=== PATIENT | male | born 1970 | race Caucasian/White ===

== ENCOUNTER 2024-04-14 21:07 | Emergency (ER) | payer OTHER, SELFPAY ==
[2024-04-14 21:11] VITALS: BP 149/74; PULSE 88; RESP 18; TEMP 36.2; O2SAT 97; BMI 21.6
--- NOTE | 2024-04-14 21:23 | ED_ITS ---
HPI - General Adult General Chief complaint: Back Injury/Pain Stated complaint: back pain/work related Time Seen by Provider: 04/14/24 21:11 Source: patient Mode of arrival: ambulatory Limitations: no limitations History of Present Illness HPI narrative: 53-year-old male presenting today with low back pain radiating down his right leg. 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 He denies any fevers or chills. Denies any trauma to the back. He denies any difficulty with urination. He denies any trouble with stooling. He denies any nausea or vomiting. He denies tripping or weakness of the lower extremity. Patient does smoke. Related Data Allergies Allergy/AdvReac Type Severity Reaction Status Date / Time No Known Drug Allergies Allergy Verified 04/14/24 21:15 Review of Systems Status of ROS: Reports: 6 or more systems reviewed and unremarkable except as noted in History and below Exam Narrative: Exam Narrative: Well-nourished well-developed patient in no acute distress. Alert and oriented. Answers questions appropriately. Mood and affect are appropriate. Thoughts are goal oriented and rational. No tangential or magical thinking noted. Patient speaks in full sentences without needing to catch his breath. HEENT: Normocephalic atraumatic. Pupils are equally round reactive to light. Extraocular muscles are intact. Conjunctivae are moist without any icterus noted. Moist mucous membranes. Very poor dentition. Abdomen is soft and nontender. Extremities: Bilateral lower extremities are without edema. Skin: Well perfused without any obvious rashes. Back: Normal appearance. No tenderness to palpation of the thoracic or lumbar spine. Strength is 5/5 of the lower extremities. Reflexes are 2+ and symmetric at the knees. No foot drop is noted. Gait is normal. He does have a positive straight leg test on the right Const: Vital Signs, click to edit/add: Vital Signs - 24 hr 04/14/24 21:11 Temperature 97.2 F L Pulse Rate [Left P ulse Oximeter] 88 Respiratory Rate 18 Blood Pressure [Ri ght Upper Arm] 149/74 H Pulse Oximetry 97 Oxygen Delivery Me thod Room Air Course Vital Signs Vital signs: Initial Vital Signs Temperature 97.2 F L 04/14/24 21:11 Temperature Source Temporal Artery Scan 04/14/24 21:11 Pulse Rate 88 04/14/24 21:11 Pulse Rhythm Regular 04/14/24 21:11 Respiratory Rate 18 04/14/24 21:11 Blood Pressure 149/74 H 04/14/24 21:11 Blood Pressure Mean 99 04/14/24 21:11 Blood Pressure Position Sitting 04/14/24 21:11 Pulse Oximetry 97 04/14/24 21:11 Oxygen Delivery Method Room Air 04/14/24 21:11 Vital Signs Temperature 97.2 F L 04/14/24 21:11 Pulse Rate 88 04/14/24 21:11 Respiratory Rate 18 04/14/24 21:11 Blood Pressure 149/74 H 04/14/24 21:11 Pulse Oximetry 97 04/14/24 21:11 Oxygen Delivery Method Room Air 04/14/24 21:11 Temperature 97.2 F L 04/14/24 21:11 Pulse Rate 88 04/14/24 21:11 Respiratory Rate 18 04/14/24 21:11 Blood Pressure 149/74 H 04/14/24 21:11 Pulse Oximetry 97 04/14/24 21:11 Oxygen Delivery Method Room Air 04/14/24 21:11 Medical Decision Making MDM Narrative Medical decision making narrative: 53-year-old male with low back pain with lumbar radiculopathy. No red flag symptoms noted today. Will treat with oxycodone at night to help sleep and prednisone taper. Discharge Plan Discharge Clinical Impression: Lumbar radiculopathy Patient Disposition: Home, Self-Care Condition: Stable Additional Instructions: You likely have a slipped disc in your back causing nerve compression. Take pain medication at night as needed to help you sleep. Take all steroid as prescribed. If you are not getting better in the next 2 weeks, you do see your primary care provider. If you are getting worse, developed difficulty urinating or having a bowel movement then you need to return to the ER. Follow Up/Referrals: Loree Chamberlain PA-C [Primary Care Provider] - Stand Alone Forms: [employer] Info Instructions
== END 2024-04-14 21:50 | disposition home or self-care (01) ==
PROVIDERS: Emergency Provider Family Medicine; PCP Physician Assistant Medical
DX: M54.16 Radiculopathy, lumbar region (principal)
CPT/HCPCS: 99283

== ENCOUNTER 2024-04-20 03:33 | Emergency (ER) | payer OTHER, SELFPAY ==
--- OUTSIDE RECORDS SUMMARY | 2024-04-20 03:39 | XMS_ITS | Clinical Summary ---
Author Organization [facility] Address [place], [place] [address] Care Team Providers Care Shift Superintendent Caustic Cresylate Name Role Phone Loree Chamberlain Primary Care Provider Allergies No known active allergies Medications Medication Sig Dispensed Refills Start Date End Date Status PRILOSEC 20 MG CAP take 1 capsule (20 mg) by oral route once daily before a meal 0 04/03/2008 Active fluticasone (50 mcg per actuation) nasal solution (FLONASE)Indicat ions:Subacute maxillary sinusitis inhale 1 spray into both nostrils by intranasal route 2 times daily. 3 Bottle 3 12/17/2016 Active naproxen (NAPROSYN) 500 mg tabletIndication s:Thumb pain, right Take 1 Tablet (500 mg) by mouth every 12 hours if needed for Pain. 28 Tablet 12/27/2022 Active gabapentin (NEURONTIN) 100 mg capsuleIndicatio ns:Acute midline low back pain with right-sided sciatica Take 100 mg in the morning, 100 mg at noon, and 300 mg at bedtime. 90 Capsule 04/18/2024 Active gabapentin (NEURONTIN) 100 mg capsuleIndicatio ns:Acute midline low back pain with right-sided sciatica Take 1 Capsule (100 mg) by mouth three times daily. 90 Capsule 04/16/2024 04/18/2024 Discontinue d(*Medicati on adjustment) Active Problems Problem Noted Date Diagnosed Date Tobacco abuse 05/01/2013 Allergic rhinitis 04/26/2013 Encounters Date Type Department Care Team Description 04/18/2024 Telephone [facility] [address] [place] [address] Rita Ramos PA Pain; Work Note 04/17/2024 Telephone [facility] [address] [place] [address] [address] Rita Ramos PA Results 04/16/2024 12:45 PM CDT Ancillary Procedure [facility] [address] [facility] [address] Arrived 04/16/2024 11:35 AM CDT Office Visit [facility] [address] [place] [address] [address] Rita Ramos PA Occ Med (04/13 evening at work. Lower back, and right sided- pain is radiating down the right leg to the ankle. ) 04/16/2024 Travel from Last 3 Months Immunizations Name Administration Dates Next Due AMB Influenza, IIV3 (Age >=3 years)(Flu Clinic Only) 04/03/2013,04/14/2012 COVID-19 vaccine ([employer]-J& J) PF, MDV 10/03/2020 Influenza, IIV3 (Age 6-35 mos) 04/19/2011,2009,04/18/2009 Influenza, IIV3 (Age >=3 years) 04/18/20 15,04/03/2013,04/14/2012,05/08/20 08 Influenza, IIV4 04/02/2014 Tdap 03/22/2012 Social History Tobacco Use Types Packs/Day Years Used Date Smoking Tobacco: Every Day Cigarettes 1 34.7 Started: 08/21/1989 Smokeless Tobacco: Never Tobacco Cessation:Counseling Given: Yes Alcohol Use Standard Drinks/Week Comments No 0 (1 standard drink = 0.6 oz pur e alcohol) PHQ-2 Answer Date Recorded PHQ-2 TOTAL SCORE 0 04/02/2022 Social Connections Answer Date Recorded Frequency of Communication with Friends and Fami ly 0 07/26/2023 Financial Resource Strain Answer Date R ecorded Difficulty of Paying Living Expenses 3 07/26/2023 Difficulty of Paying Living Expenses Not on file 07/26/2023 Food Insecurity Answer Date Recorded Worried About Running Out of Food in the Last Ye ar 1 07/26/2023 Transportation Needs Answer Date Record ed Lack of Transportation (Medical) 1 07/26/2023 Housing Stability Answer Date Recorded Unable to Pay for Housing in the Last Year 1 07/26/2023 Sex and Gender Information Value Date Recorded Sex Assigned at Not on file Gender Identity Not on file Sexual Orientation Not on file Obstetrics History Last Filed Vital Signs Vital Sign Reading Time Taken Comments Blood Pressure 144/75 04/16/2024 11:43 AM CDT Pulse 88 04/16/2024 11:43 AM CDT Temperature 36.6 ??C (97.9 ??F) 11/02/2023 1:41 PM CD T Respiratory Rate 18 07/26/2023 7:08 PM ACID DIPPER Oxygen Saturation 96% 04/16/2024 11: 43 AM CDT Inhaled Oxygen Concentration - - Weight 68.4 kg (150 lb 12.8 oz) 024 11:43 AM CDT Height 165.1 cm (5' 5) 04/02/2022 9:54 AM CDT Body Mass Index 25.09 04/02/2022 9:54 AM CDT Plan of Treatment Health Maintenance Due Date Last Done Comments Pneumococcal series for age 6-64 (1 of 2 - PCV) 1976 HIV for age 15-65 1985 Hepatitis C screening for ag e 18-79 1988 Colonoscopy through age 75 09/22/[address] (for lung CA) ag e 50-80 2020 Zoster (shingles) series for age 50+ (1 of 2) 2020 Lipids for age 45-75 08/04/2021 08/04/2016 Tetanus booster 03/22/2022 03/22/2012 BMI (ht and wt on same day) for age 18+ 04/02/2023 04/02/2022, 08/27/2020, 02/08/2018, Additional history exists Depression screening for age 12+ 04/02/2023 04/02/2022, 08/21/2019, 09/05/2017, Additional history exists COVID-19 vaccine series ( - season) 2024 10/03/2020 Influenza for age 50-64 03/18/2024 04/18/20 15, 04/02/2014, 04/03/2013, Additional history exists Tdap Completed 03/22/2012 Procedures Procedure Name Priority Date/Time Associated Diagnosis Comments XR SPINE LUMBAR 3 VIEWS Routine 04/16/2024 12:47 PM CDT Acute midline low back pain with right-sided sciatica LIPID PANEL W REFLEX MEASURED LDL Routine 08/04/2016 11:08 AM ACID DIPPER Screening cholesterol level from Last 3 Months or Most Recently Relevant to Health Maintenance Results * XR SPINE LUMBAR 3 VIEWS (04/16/2024 12:47 PM CDT) Anatomical Region Laterality Modality LUMBAR SPINE Computed Radiogr aphy 04/16/2024 3:49 PM CDT Impressions 04/16/2024 3:49 PM CDT Grade 1 degenerative spondylolisthesis of L4 on L5 due to facet degeneration. No vertebral body compression fracture. Mild disc space narrowing L4-5. Mild vascular calcifications. SI joints normal. Dictated by Diaz Gee MD @ 04/16/2024 3:49:08 PM (Electronically Signed) Narrative 04/16/2024 3:49 PM CDT For Patients: ??As a result of the Cures Act, medical imaging exams and procedure reports are released immediately into your electronic medical record. ??You may view this report before your referring provider. ??If you have questions, please contact your health care provider. Indication: Low back pain with right-sided sciatica Technique: Lumbar spine 2 view Comparison: MRI 09/08/2020 Procedure Note Diaz Gee MD - 04/16/2024 For Patients: As a result of the Cures Act, medical imagingexams and procedure reports are released immediately into your electronicmedical record. You may view this report before your referring provider.If you have questions, please contact your health care provider. Indication: Low back pain with right-sided sciatica Technique: Lumbar spine 2 view Comparison: MRI 09/08/2020 IMPRESSION: Grade 1 degenerative spondylolisthesis of L4 on L5 due to facetdegeneration. No vertebral body compression fracture. Mild disc spacenarrowing L4-5. Mild vascular calcifications. SI joints normal. Dictated by Diaz Gee MD @ 04/16/2024 3:49:08 PM (Electronically Signed) Rita [facility] * (ABNORMAL) LIPID PANEL W REFLEX MEASURED LDL (08/04/2016 11:08 AM ACID DIPPER) CHOLESTEROL,TOTAL 169 100 - 199 mg/dL 08/04/2016 11:35 AM ACID DIPPER [facility] TRIGLYCERIDES 91 <150 mg/dL 08/04/2016 11:35 AM ACID DIPPER [facility] HDL CHOLESTEROL 40(L) >40 mg/dL 7 11:35 AM ACID DIPPER [facility] NON-HDL CHOLESTEROL 129 <145 mg/dl 08/04/2016 11:35 AM ACID DIPPER [facility] CHOL/HDL RATIO 4.23 <4.50 08/04/2016 11:35 AM ACID DIPPER [facility] LDL CHOLESTEROL 111 <=130 mg/dL 08/04/2016 11:35 AM ACID DIPPER [facility] PATIENT STATUS FASTING 08/04/2016 11:35 AM ACID DIPPER [facility] Blood BLOOD SPECIMEN / Unknown Venipuncture / Unknown 08/04/2016 11:08 AM ACID DIPPER 08/04/2016 11:08 AM ACID DIPPER Loree SALCEDO CHEMISTRY [facility] [address] [place] [address], from Last 3 Months or Most Recently Relevant to Health Maintenance Care Teams Shift Superintendent Caustic Cresylate Relationship Specialty Start Date End Date Loree Chamberlain PA [address] [place] [address] PCP - General Family Practice 05/02/14
[2024-04-20 03:40] VITALS: BP 159/70; PULSE 118; RESP 16; TEMP 36.9; O2SAT 98; BMI 25.3
--- OUTSIDE RECORDS SUMMARY | 2024-04-20 04:17 | XMS_ITS | Clinical Summary ---
Author Organization [facility] Address [address] Care Team Providers Care Manager [employer] Name Role Phone Loree Chamberlain Primary Care [...] Type Department Care Team Description 04/18/2024 Telephone [facility] [address] [place] [address] Rita Ramos PA Pain; Work Note 04/17/2024 Telephone [facility] [address] [place] [address] [address] Rita Ramos PA Results 04/16/2024 12:45 PM CDT Ancillary Procedure [facility] [address] [facility] [address] Arrived 04/16/2024 11:35 AM CDT Office Visit [facility] [address] [place] [address] [address] Rita Ramos PA Occ Med (04/13 evening at work. Lower back, and right sided- pain is radiating down the right leg to the ankle. ) 04/16/2024 Travel from Last 3 Months Immunizations Name Administration Dates Next Due AMB Influenza, IIV3 (Age >=3 years)(Flu Clinic Only) 04/03/2013,04/14/2012 COVID-19 vaccine ([employer]-J& J) PF, MDV 10/03/2020 Influenza, IIV3 (Age [...] T Respiratory Rate 18 07/26/2023 7:08 PM SOCIAL DIRECTOR Oxygen Saturation 96% 04/16/2024 11: 43 AM [...] REFLEX MEASURED LDL Routine 08/04/2016 11:08 AM SOCIAL DIRECTOR Screening cholesterol level from Last 3 Months [...] W REFLEX MEASURED LDL (08/04/2016 11:08 AM SOCIAL DIRECTOR) CHOLESTEROL,TOTAL 169 100 - 199 mg/dL 08/04/2016 11:35 AM SOCIAL DIRECTOR [facility] TRIGLYCERIDES 91 <150 mg/dL 08/04/2016 11:35 AM SOCIAL DIRECTOR [facility] HDL CHOLESTEROL 40(L) >40 mg/dL 7 11:35 AM SOCIAL DIRECTOR [facility] NON-HDL CHOLESTEROL 129 <145 mg/dl 08/04/2016 11:35 AM SOCIAL DIRECTOR [facility] CHOL/HDL RATIO 4.23 <4.50 08/04/2016 11:35 AM SOCIAL DIRECTOR [facility] LDL CHOLESTEROL 111 <=130 mg/dL 08/04/2016 11:35 AM SOCIAL DIRECTOR [facility] PATIENT STATUS FASTING 08/04/2016 11:35 AM SOCIAL DIRECTOR [facility] Blood BLOOD SPECIMEN / Unknown Venipuncture / Unknown 08/04/2016 11:08 AM SOCIAL DIRECTOR 08/04/2016 11:08 AM SOCIAL DIRECTOR Loree SALCEDO CHEMISTRY [facility] [address] [place] [address], from Last 3 Months or Most Recently Relevant to Health Maintenance Care Teams Manager Water Waste[employer] Relationship Specialty Start Date End Date Loree Chamberlain PA [address] [place] [address] PCP - General Family Practice 05/02/14
--- NOTE | 2024-04-20 05:22 | ED.BACK ---
HPI - Back Pain/Injury General Date Seen: 04/20/24 Chief Complaint: Back Injury/Pain Stated Complaint: hip and back pain Time Seen by Provider: 04/20/24 03:52 Source: patient Mode of arrival: ambulatory Limitations: no limitations History of Present Illness HPI Narrative: Patient is a 53-year-old male who has been struggling with low back pain that radiates down his right leg. He was seen in the ER once and in the clinic once. This is a work comp case. His x-rays apparently showed some DJD those were done in the clinic. He has not had any advanced imaging. No bowel or bladder dysfunction. He has been treated with prednisone, oxycodone, Tylenol and tonight the pain was so severe the was unable to sleep. The clinic provider has not taken him out of work or sent him to physical therapy. No previous history of back issues. Related Data Previous Rx's ?Medication ?Instructions ?Recorded oxycodone-acetaminophen 5 mg-325 1 tab PO TID PRN pain #10 tabs 04/14/24 mg tablet (Percocet) prednisone 20 mg tablet 20 mg PO DIRECTED 9 days #18 04/14/24 tabs oxycodone 5 mg tablet 5 - 10 mg (1 - 2 x 5 mg) PO Q4-6H 04/20/24 PRN pain #20 tabs Allergies Allergy/AdvReac Type Severity Reaction Status Date / Time No Known Drug Allergies Allergy Verified 04/20/24 03:44 Review of Systems Narrative: Review of systems is outlined above otherwise noted to be negative. [facility] Social History Smoking Status: Current every day smoker Do you use any of these nicotine containing products: None How often do you have a drink containing alcohol: never AUDIT-C Alcohol total score: 0 Non-prescribed substance use: denies use Exam Narrative: Exam Narrative: Vitals noted. He has myofascial tightness and tenderness in the right low back. No palpable spasms. Straight leg raising is positive on the right, negative on the left. He is able to heel and toe walk. He seems to have a diminished left ankle jerk reflex. He all lines pain down his buttock, posterior thigh, lateral calf, dorsum of the foot, into the big toe. Range of motion is limited by pain. Const: Vital Signs, click to edit/add: Vital Signs - 24 hr 04/20/24 03:40 Temperature 98.5 F Pulse Rate [Right Pulse Oximeter] 118 H Respiratory Rate 16 Blood Pressure [Ri ght Upper Arm] 159/70 H Pulse Oximetry 98 Oxygen Delivery Me thod Room Air Course Course ED Course: Patient seen and examined. He is obviously very uncomfortable. His is within but she does not drive. He is given Toradol 60 mg IM with a planned increase his oxycodone dose. Vital Signs Vital signs: Initial Vital Signs Temperature 98.5 F 04/20/24 03:40 Temperature Source Temporal Artery Scan 04/20/24 03:40 Pulse Rate 118 H 04/20/24 03:40 Pulse Rhythm Regular 04/20/24 03:40 Pulse Strength 3+ Normal 04/20/24 03:40 Respiratory Rate 16 04/20/24 03:40 Blood Pressure 159/70 H 04/20/24 03:40 Blood Pressure Mean 99 04/20/24 03:40 Blood Pressure Position Sitting 04/20/24 03:40 Pulse Oximetry 98 04/20/24 03:40 Oxygen Delivery Method Room Air 04/20/24 03:40 Vital Signs Temperature 98.5 F 04/20/24 03:40 Pulse Rate 118 H 04/20/24 03:40 Respiratory Rate 16 04/20/24 03:40 Blood Pressure 159/70 H 04/20/24 03:40 Pulse Oximetry 98 04/20/24 03:40 Oxygen Delivery Method Room Air 04/20/24 03:40 Temperature 98.5 F 04/20/24 03:40 Pulse Rate 118 H 04/20/24 03:40 Respiratory Rate 16 04/20/24 03:40 Blood Pressure 159/70 H 04/20/24 03:40 Pulse Oximetry 98 04/20/24 03:40 Oxygen Delivery Method Room Air 04/20/24 03:40 Discharge Plan Discharge Clinical Impression: Lumbar radiculopathy Patient Disposition: Home, Self-Care Condition: Stable Additional Instructions: Tylenol 1000 mg three times daily, Ibuprofen 800 mg three times daily. Oxycodone 5-10 mg every 4 hours as needed. No work until seen in clinic. Your PCP needs to get you set up with Physical Therapy and an MRI of your LS spine. Follow up in the clinic within the next 3 days. Prescriptions: New oxycodone 5 mg tablet 5 - 10 mg PO Q4-6H PRN (Reason: pain) Qty: 20 0RF No Action oxycodone-acetaminophen [Percocet] 5-325 mg tablet 1 tab PO TID PRN (Reason: pain) Qty: 10 0RF prednisone 20 mg tablet 20 mg PO DIRECTED 9 Days Qty: 18 0RF Rx Instructions: 60 mg p.o. daily for 3 days (3 tablets daily on day 1-3), 40 mg daily for 3 days (2 tablets daily on days 4-6), 20 mg daily for 3 days (1 tablet daily on days 7-9). Follow Up/Referrals: Loree Chamberlain PAEulaC [Primary Care Provider] - Stand Alone Forms: [employer] Info Instructions
== END 2024-04-20 04:21 | disposition home or self-care (01) ==
PROVIDERS: Emergency Provider Family Medicine; PCP Physician Assistant Medical
DX: M54.16 Radiculopathy, lumbar region (principal)
CPT/HCPCS: 96372; 99281; 99283; 99284

== ENCOUNTER 2024-04-30 05:49 | Emergency (ER) | payer OTHER, SELFPAY ==
[2024-04-30 06:05] VITALS: BP 156/76; PULSE 91; RESP 16; TEMP 36.7; O2SAT 99; BMI 22.6
[2024-04-30 06:31] VITALS: TEMP 36.7
[2024-04-30] MEDS: KETOROLAC 30 MG/ML inj IM (06:31)
[2024-04-30] MEDS: predniSONE 20 MG TABLET 40 MG PO (06:31)
--- NOTE | 2024-04-30 06:33 | ED.GENADULT ---
HPI - General Adult General Chief complaint: Extremity Pain/Injury, Lower Stated complaint: RT leg pain from injury at work x2wks ago Time Seen by Provider: 04/30/24 06:12 Source: patient Mode of arrival: ambulatory Limitations: no limitations History of Present Illness HPI narrative: 53-year-old male with a history of multiple ED visits within the past 3 weeks presents to the emergency department for recurrent low back pain radiating down the right leg. Notes reviewed from ED, most recent was 10 days ago. Prior x-rays noted. Patient reports that for the last 3 days his pain has been worse. He finished his steroid 4 days ago. Initially he thought it was not helping but now that his pain has worsened, he does question this. He reports that he did see his primary care provider 5 days ago. He was given an increased dose of oxycodone. He does not have his pills with him for me to examine or count. He reports that he was also started on another medication, but he care murmur what it is, how often he takes it or the other details. Unfortunately my access to the [facility] records has and this is unable to be resolved overnight for me to find this out. He does not bring his print out of his medications, his pill bottles or have access through his phone for us to discover this safely. There has been no real change in his area of symptoms. No new trauma or injury. This is a workman's comp case. There was no loss of bowel or bladder dysfunction. He reports he has been unable to sleep due to the pain for the past [address] himself here. No fever, no new systemic symptoms. No rash. Past medical history and prior ED notes reviewed. He is not an accurate historian of his home medications. Denies drug allergies. He is a smoker. ROS is notable for the generalized and musculoskeletal symptoms as above. Negative for other new neurological, skin or other generalized concerns. Related Data Home Medications ?Medication ?Instructions ?Recorded ?Confirmed cyclobenzaprine 10 mg tablet 10 mg PO BID PRN muscle spasm 04/30/24 04/30/24 gabapentin 100 mg capsule 100 mg PO 3XD 04/30/24 04/30/24 Previous Rx's ?Medication ?Instructions ?Recorded gabapentin 300 mg capsule 300 - 600 mg (1 - 2 x 300 mg) PO 04/30/24 TID #120 caps prednisone 20 mg tablet 20 - 40 mg (1 - 2 x 20 mg) PO 04/30/24 DAILY #11 tabs Allergies Allergy/AdvReac Type Severity Reaction Status Date / Time No Known Drug Allergies Allergy Verified 04/30/24 06:05 [facility] Social History Smoking Status: Current every day smoker Do you use any of these nicotine containing products: None Second hand tobacco smoke exposure: Yes How often do you have a drink containing alcohol: never AUDIT-C Alcohol total score: 0 Non-prescribed substance use: denies use Exam Const: Vital Signs, click to edit/add: Vital Signs - 24 hr 04/30/24 06:05 04/30/24 06:31 Temperature 98.1 F 98.1 F Pulse Rate [Pulse Oximeter] 91 Respiratory Rate 16 Blood Pressure [Le ft Upper Arm] 156/76 H Pulse Oximetry 99 Oxygen Delivery Me thod Room Air Documenting provider has reviewed patient's vital signs: yes Common normals: no apparent distress Other: Friendly and cooperative. Suboptimal historian but does not seem intoxicated. HENMT: Common normals: normocephalic Head and scalp: normocephalic Mouth: oral and palatal mucosa normal Eye: Common normals: conjunctivae normal General eye: normal appearance of both eyes Conjunctiva: conjunctiva(e) normal Resp: Common normals: normal respiratory effort Effort & inspection: able to speak in complete sentences Back & Pelvis: Other: Loss of typical lumbar lordosis noted. No point bony tenderness to the spine. Tenderness to the right SI joint noted. Can only flex about 20? but it is mostly at the hip have her attend the waist. Extension is limited to about 10? and worsens his pain. Straight leg lift test is difficult because he has pain with any initiation of movement. Passive range of motion does isolate in the 30-70 degree arc that would be suspicious for herniated disc. This is on the right side, not the left. Muscle strength is +5/5 but he does have some slight weakness on the right as compared to the left and sensation deficit right side along L4 and L5, subtle and not complete. Extremity: Other: Legs normal to inspection with no swelling, redness or deformity to knees ankles or feet. Psych: Activity/motor behavior: appropriate eye contact Mood and affect: euthymic mood Skin: Common normals: no rashes or lesions noted General skin exam: no rashes or lesions noted Course Course ED Course: 53-year-old male with 3rd ED visit in the last 3 weeks presenting with worsening of back pain after completion of steroid burst. Has seen primary care provider and is now getting oxycodone through that provider. Per the prescription, should have 2 and half more days left. MRI has already been ordered which really is the most important next step in workup. I am not seeing any red flags for cauda equinus syndrome, new trauma or injury or an alternative diagnosis. There are no fevers to suspect infection or worsening neurological dysfunction. Counseled patient on options. He will receive Toradol and Tylenol here in the ED as he did previously findings helpful. Will give him a new prescription for gabapentin 300 mg morning, afternoon and 600 at bedtime. Counseled that he cannot receive further oxycodone from me and that needs to come from his primary care provider. He verbalized understanding of this. He will need to touch base with his primary care provider in a couple of days to recheck how things are going. Will restart prednisone 40 mg once daily for 4 days and then 20 mg once daily for 3 additional days. Counseled that the MRI is critical in figuring out the next steps in his management whether it be surgical, physical therapy or injection. I cannot coordinate that for him here through the emergency department. Written instructions provided, all questions answered. Alarm symptoms reviewed that would warrant repeat ED presentation. Vital Signs Vital signs: Initial Vital Signs Temperature 98.1 F 04/30/24 06:05 Temperature Source Temporal Artery Scan 04/30/24 06:05 Pulse Rate 91 04/30/24 06:05 Respiratory Rate 16 04/30/24 06:05 Blood Pressure 156/76 H 04/30/24 06:05 Blood Pressure Mean 102 04/30/24 06:05 Blood Pressure Position Sitting 04/30/24 06:05 Pulse Oximetry 99 04/30/24 06:05 Oxygen Delivery Method Room Air 04/30/24 06:05 Vital Signs Temperature 98.1 F 04/30/24 06:05 Pulse Rate 91 04/30/24 06:05 Respiratory Rate 16 04/30/24 06:05 Blood Pressure 156/76 H 04/30/24 06:05 Pulse Oximetry 99 04/30/24 06:05 Oxygen Delivery Method Room Air 04/30/24 06:05 Temperature 98.1 F 04/30/24 06:31 Pulse Rate 91 04/30/24 06:05 Respiratory Rate 16 04/30/24 06:05 Blood Pressure 156/76 H 04/30/24 06:05 Pulse Oximetry 99 04/30/24 06:05 Oxygen Delivery Method Room Air 04/30/24 06:05 Medications Administered Medications: Generic Name Dose Route Start Last Admin Trade Name Fracisco PRRina Reason Stop Dose Admin Ketorolac Tromethamine 30 mg 04/30/24 06:27 04/30/24 06:31 Ketorolac 30 Mg/Ml Inj IM 04/30/24 06:28 30 mg ONCE ONE Administration Prednisone 40 mg 04/30/24 06:27 04/30/24 06:31 Prednisone 20 Mg Tablet PO 04/30/24 06:28 40 mg ONCE ONE Administration Discharge Plan Discharge Clinical Impression: Radiculopathy of lumbar region Patient Disposition: Home, Self-Care Condition: Stable Instructions: Lumbar Radiculopathy (ED) Additional Instructions: Like the several other providers that you have seen, I agree that you seem to have a pinched nerve in your back. This is likely from herniated disc or other injury. There is not much that I can offer you in terms of diagnostics in the emergency room. I agree with the plan to proceed with an MRI at this point. I am glad your primary care provider has already started this process. It can be complicated to work with workman's Comp. Your given a shot of Toradol here in the emergency department, and anti-inflammatory pain medication. I think that your pain has worsened for the last 3 days because you have completed your course of prednisone. I would like to temporarily restart that. He will take 40 mg once daily for 4 more days, then 20 mg once daily for 3 days. Hopefully you have some information regarding your MRI by that point. Management of this really needs to go through your primary care provider from this point forward. I cannot give you any more pain medication through the emergency department. Continue taking the oxycodone that you have been previously prescribed. I really wish that I can see your records and have an accurate idea of how much gabapentin was given to you at [facility] if any. You need to always bring her pill bottles or an accurate list of your medications when you are switching between Health Systems. You mentioned that your on the lowest dose of gabapentin, I am going to recommend going to a standard dose which is 300 mg 1 tablet in the morning, 1 in the afternoon and 2 at bedtime. Hopefully this will also help you sleep. Schedule follow-up appointment in 2 days with her primary care provider for refills on your oxycodone should it be needed and to touch base with the next steps in the plan. Activity Level: Activity as Tolerated Discharge Diet: Regular Prescriptions: New gabapentin 300 mg capsule 300 - 600 mg PO TID Qty: 120 0RF Rx Instructions: 1 tablet by mouth in the morning, 1 in the afternoon and 2 tablets at bedtime. prednisone 20 mg tablet 20 - 40 mg PO DAILY Qty: 11 0RF Rx Instructions: 2 tablets by mouth each morning starting 10/15 for 4 days, then 1 tablet by mouth daily until gone No Action cyclobenzaprine 10 mg tablet 10 mg PO BID PRN (Reason: muscle spasm) gabapentin 100 mg capsule 100 mg PO 3XD Follow Up/Referrals: Loree Chamberlain PA-C [Primary Care Provider] - Stand Alone Forms: MyHealth Info Instructions
--- OUTSIDE RECORDS SUMMARY | 2024-04-30 06:46 | XMS_ITS | Clinical Summary ---
Author Organization [facility] Address [place], [place] [address] Care Team Providers Care Lead Blender Name Role Phone Loree Chamberlain Primary Care Provider Allergies No known active allergies Medications Medication Sig Dispensed Refills Start Date End Date Status PRILOSEC 20 MG CAP take 1 capsule (20 mg) by oral route once daily before a meal 0 04/03/2008 Active fluticasone (50 mcg per actuation) nasal solution (FLONASE)Indication s:Subacute maxillary sinusitis inhale 1 spray into both nostrils by intranasal route 2 times daily. 3 Bottle 3 12/17/2016 Active naproxen (NAPROSYN) 500 mg tabletIndications:T humb pain, right Take 1 Tablet (500 mg) by mouth every 12 hours if needed for Pain. 28 Tablet 12/27/2022 Active gabapentin (NEURONTIN) 100 mg capsuleIndications: Acute midline low back pain with right-sided sciatica Take 100 mg in the morning, 100 mg at noon, and 300 mg at bedtime. 90 Capsule 04/18/2024 Active cyclobenzaprine (FLEXERIL) 10 mg tabletIndications:A cute midline low back pain with right-sided sciatica,Right lumbar radiculopathy Take 1 Tablet (10 mg) by mouth 2 times daily if needed for Muscle Spasm. 30 Tablet 04/23/2024 Active gabapentin (NEURONTIN) 100 mg capsuleIndications: Acute midline low back pain with right-sided sciatica Take 1 Capsule (100 mg) by mouth three times daily. 90 Capsule 04/16/2024 Discontinue d(*Medicati on adjustment) Active Problems Problem Noted Date Diagnosed Date Tobacco abuse 05/01/2013 Allergic rhinitis 04/26/2013 Encounters Date Type Department Care Team Description 04/24/2024 Telephone [facility] [place] [address] Loree Chamberlain PA Results (XRAYS ) 04/23/2024 2:15 PM CDT Ancillary Procedure [address] [address] 04/23/2024 2:00 PM CDT Ancillary Procedure [address] [address] 04/23/2024 1:20 PM CDT Office Visit [facility] [place] [address] Loree Chamberlain PA Occ Med (Follow up. Nothing that was given to him last visit has really helped much. R ankle is bothering him, asking for an XR.) 04/23/2024 Travel 04/18/2024 Telephone [facility] [place] [address] Rita Ramos PA Pain; Work Note 04/17/[address] [address] Rita Ramos PA Results 04/16/2024 12:45 PM CDT Ancillary Procedure [address] [address] 04/16/2024 11:35 AM CDT Office Visit [address] [address] Rita Ramos PA Occ Med (04/13 evening at work. Lower back, and right sided- pain is radiating down the right leg to the ankle. ) 04/16/2024 Travel from Last 3 Months Immunizations Name Administration Dates Next Due AMB Influenza, IIV3 (Age >=3 years)(Flu Clinic Only) 04/03/2013,04/14/2012 COVID-19 vaccine (Zee-J& J) PF, MDV 10/03/2020 Influenza, IIV3 (Age [...] Sign Reading Time Taken Comments Blood Pressure 147/82 04/23/2024 1:25 PM CDT Pulse 76 04/23/2024 1:25 PM CDT Temperature 36.6 ??C (97.9 ??F) 11/02/2023 1:41 PM CD T Respiratory Rate 18 07/26/2023 7:08 PM HOSPICE SUPERINTENDENT Oxygen Saturation 96% 04/16/2024 11: 43 AM CDT Inhaled Oxygen Concentration - - Weight 67.5 kg (148 lb 12.8 oz) 04/23/2024 1:25 PM CDT Height 165.1 cm (5' 5) 04/02/2022 9:54 AM CDT Body Mass Index 24.76 04/02/2022 9:54 AM CDT Plan of Treatment Upcoming Encounters Date Type Department Care Team (Late st Contact Info) Description 05/17/2024 2:45 PM CDT Ancillary Procedure [facility] [address] [place] [address] Health Maintenance Due Date Last Done Comments [...] Additional history exists COVID-19 vaccine series ( season) 2024 10/03/2020 Influenza for age 50-64 03/18/2024 04/18/20 15, 04/02/2014, 04/03/2013, Additional history exists Tdap Completed 03/22/2012 Procedures Procedure Name Priority Date/Time Associated Diagnosis Comments XR FOOT 3 VIEWS RIGHT Routine 04/23/2024 2:07 PM CDT Foot pain, right Acute right ankle pain XR ANKLE 3 VIEWS RIGHT Routine 04/23/2024 2:06 PM CDT Foot pain, right Acute right ankle pain XR SPINE LUMBAR 3 VIEWS Routine 04/16/2024 12:47 PM CDT Acute midline low back pain with right-sided sciatica LIPID PANEL W REFLEX MEASURED LDL Routine 08/04/2016 11:08 AM [facility]OSPICE SUPERINTENDENT Screening cholesterol level from Last 3 Months or Most Recently Relevant to Health Maintenance Results * XR FOOT 3 VIEWS RIGHT (04/23/2024 2:07 PM CDT) Anatomical Region Laterality Modality FEET, FOOT R Computed Radiogr aphy 04/24/2024 1:18 PM CDT Narrative 04/24/2024 1:18 PM CDT For Patients: ??As a result of the Cures Act, medical imaging exams and procedure reports are released immediately into your electronic medical record. ??You may view this report before your referring provider. ??If you have questions, please contact your health care provider. INDICATION: Right foot pain. TECHNIQUE: Three views of the right foot. FINDINGS: No bone, joint, or soft tissue abnormality in the right foot. Normal exam. Dictated by Daryn Jean-Baptiste MD @ 04/24/2024 1:18:16 PM (Electronically Signed) Procedure Note Daryn Jean-Baptiste MD - 04/24/2024 For Patients: As a result of the Cures Act, medical imagingexams and procedure reports are released immediately into your electronicmedical record. You may view this report before your referring provider.If you have questions, please contact your health care provider. INDICATION: Right foot pain. TECHNIQUE: Three views of the right foot. FINDINGS: No bone, joint, or soft tissue abnormality in the right foot. Normalexam. Dictated by Daryn Jean-Baptiste MD @ 04/24/2024 1:18:16 PM (Electronically Signed) [facility] * XR ANKLE 3 VIEWS RIGHT (04/23/2024 2:06 PM CDT) Anatomical Region Laterality Modality ANKLES, ANKLE R Computed Radiogr aphy 04/24/2024 11:2 7 AM CDT Impressions 04/24/2024 11:27 AM CDT 1. No acute osseous injuries or abnormalities are noted. Dictated by: Nicolas Merrill MD @ 04/24/2024 11:27:07 (Electronically Signed) Narrative 04/24/2024 11:27 AM CDT For Patients: ??As a result of the Cures Act, medical imaging exams and procedure reports are released immediately into your electronic medical record. ??You may view this report before your referring provider. ??If you have questions, please contact your health care provider. INDICATION: Foot pain, right, right right ankle pain TECHNIQUE: Ankle radiograph 3 views right COMPARISON: None FINDINGS: Bone: No acute fractures or aggressive bone lesions are identified. Joint: The ankle mortise joint and the visualized hindfoot joints are unremarkable in appearance. No significant ankle effusion is seen. Soft tissue: The Kager fat pad and the Achilles` tendon are normal in appearance. No radiopaque foreign bodies are seen. Procedure Note Nicolas Merrill MD - 04/24/2024 For Patients: As a result of the Cures Act, medical imagingexams and procedure reports are released immediately into your electronicmedical record. You may view this report before your referring provider.If you have questions, please contact your health care provider. INDICATION: Foot pain, right, right right ankle pain TECHNIQUE: Ankle radiograph 3 views right COMPARISON: None FINDINGS: Bone: No acute fractures or aggressive bone lesions are identified. Joint: The ankle mortise joint and the visualized hindfoot joints areunremarkable in appearance. No significant ankle effusion is seen. Soft tissue: The Kager fat pad and the Achilles` tendon are normal inappearance. No radiopaque foreign bodies are seen. IMPRESSION: 1. No acute osseous injuries or abnormalities are noted. Dictated by: Nicolas Merrill MD @ 04/24/2024 11:27:07 (Electronically Signed) [facility] * XR SPINE LUMBAR 3 VIEWS (04/16/2024 [...] W REFLEX MEASURED LDL (08/04/2016 11:08 AM HOSPICE SUPERINTENDENT) CHOLESTEROL,TOTAL 169 100 - 199 mg/dL 08/04/2016 11:35 AM [facility] TRIGLYCERIDES 91 <150 mg/dL 08/04/2016 11:35 AM [facility]PERINTEND[facility] HDL CHOLESTEROL 40(L) >40 mg/dL 7 11:35 AM [facility] NON-HDL CHOLESTEROL 129 <145 mg/dl 08/04/2016 11:35 AM [facility] CHOL/HDL RATIO 4.23 <4.50 08/04/2016 11:35 AM [facility] LDL CHOLESTEROL 111 <=130 mg/dL 08/04/2016 11:35 AM [facility] PATIENT STATUS FASTING 08/04/2016 11:35 AM [facility] Blood BLOOD SPECIMEN / Unknown Venipuncture / Unknown 08/04/2016 11:08 AM [facility]OSPICE SUPERINTENDENT 08/04/2016 11:08 AM [facility] SUPERINTENDENT [facility] [address] [place] [address], from Last 3 Months or Most Recently Relevant to Health Maintenance Care Teams Lead Blender Relationship Specialty Start Date End Date Loree Chamberlain PA [address] [place] [address] PCP - General Family Practice 05/02/14
[2024-04-30 06:48] VITALS: TEMP 36.7
[2024-04-30] MEDS: ACETAMINOPHEN 500 MG TABLET 1000 MG PO (06:48)
[2024-04-30] MEDS: GABAPENTIN 300 MG CAPSULE 600 MG PO (06:49)
== END 2024-04-30 07:27 | disposition home or self-care (01) ==
LOC: ED 06:44
PROVIDERS: Emergency Provider Family Medicine; PCP Physician Assistant Medical
DX: M54.16 Radiculopathy, lumbar region (principal)
CPT/HCPCS: 96372; 99283; 99284; A9270; J1885; J7512

== ENCOUNTER 2024-05-02 10:59 | Outpatient (CLI) | payer OTHER, SELFPAY ==
--- OUTSIDE RECORDS SUMMARY | 2024-05-17 15:43 | XMS_ITS | Clinical Summary ---
Author Organization [employer] [facility] [employer] [facility] Address [place], [place] [address] Care Team Providers Care Message Clerk Name Role Phone Loree Chamberlain Primary Care [...] Encounters Date Type Department Care Team Description 05/11/2024 11:40 AM CDT Office Visit [facility] [address] [place] [address] Garrett Alvarez MD Procedure (Right L4-5 and L5-S1 TFESI) 05/02/2024 2:20 PM CDT Office Visit [facility] [address] [place] [address] Loree Chamberlain PA Occ Med (Follow Up. Not doing well. Feeling worse hard to get around. felt okay when he woke up but when bent down to get pants it hurt way worse. Went to ER this Morning by ambulance. Just left there.) 05/02/2024 Orders Only [facility] Scanner 1 scan: (1-Ord) [facility], CT LUMBAR SPINE WO CONTRAST, 05/02/2024 05/02/2024 Travel 04/24/2024 Telephone [facility] [address] [place] [address] Loree Chamberlain PA Results (XRAYS ) 04/23/2024 2:15 PM CDT Ancillary Procedure [facility] [address] [place] [address] 04/23/2024 2:00 PM CDT Ancillary Procedure [facility] [address] [place] [address] 04/23/2024 1:20 PM CDT Office Visit [facility] [address] [place] [address] Loree Chamberlain PA Occ Med (Follow up. Nothing that was given to him last visit has really helped much. R ankle is bothering him, asking for an XR.) 04/23/2024 Travel 04/18/2024 Telephone [facility] [address] [facility] [place] [address] Rita Rmaos PA Pain; Work Note 04/17/2024 Telephone [facility] [address] [place] [address] Rita Ramos PA Results 04/16/2024 12:45 PM CDT Ancillary Procedure [facility] [address] [place] [address] 04/16/2024 11:35 AM CDT Office Visit [facility] [address] [place] [address] Rita Ramos PA Occ Med (04/13 evening [...] 0 04/02/2022 Social Connections Answer Date Recorded Do you often feel lonely or isolated from those around you? 0 07/26/2023 Financial Resource Strain Answer Date R ecorded Difficulty of Paying Living Expenses 3 07/26/2023 Difficulty of Paying Living Expenses Not on file 07/26/2023 Food Insecurity Answer Date Recorded Do you worry your food will run out before you are able to buy more? 1 07/26/2023 Transportation Needs Answer Date Record ed Does lack of transportation keep you from medica l appointments? 1 07/26/2023 Does lack of transportation keep you from work, meetings or getting things that you need? 1 07/26/2023 Housing Stability Answer Date Recorded [...] T Respiratory Rate 18 07/26/2023 7:08 PM RECRUITER SPECIALIST Oxygen Saturation 100% 05/02/2024 2:27 PM CDT Inhaled Oxygen Concentration - - Weight 66 kg (145 lb 8 oz) 05/02/2024 2:27 PM CD T Height 165.1 cm (5' 5) 04/02/2022 9:54 AM CDT Body Mass Index 24.21 04/02/2022 9:54 AM CDT Plan of Treatment Upcoming Encounters Date Type Department Care Team (Late st Contact Info) Description 05/18/2024 10:10 AM CDT Office Visit [facility] [address] [place] [address] Loree Chamberlain PA [address] [place] [address] Health Maintenance Due Date Last Done Comments [...] Comments AMB EPIDURAL STEROID INJECTION CORRY 05/11/2024 12:00 AM CDT Acute midline low back pain [...] REFLEX MEASURED LDL Routine 08/04/2016 11:08 AM RECRUITER SPECIALIST Screening cholesterol level from Last 3 Months or Most Recently Relevant to Health Maintenance Results * AMB EPIDURAL STEROID INJECTION (05/11/2024 12:00 AM CDT) Loree SALCEDO NEUROLOGY ORD * SCAN-CT INTERPRETATION (05/02/2024 12:00 AM CDT) [...] W REFLEX MEASURED LDL (08/04/2016 11:08 AM RECRUITER SPECIALIST) [facility] Signature CHOLESTEROL,TOTAL 169 100 - 199 mg/dL 08/04/2016 11:[address] [facility] TRIGLYCERIDES 91 <150 mg/dL 08/04/2016 11:[address] [facility] HDL CHOLESTEROL 40(L) >40 mg/dL 7 11:[address] [facility] NON-HDL CHOLESTEROL 129 <145 mg/dl 08/04/2016 11:[address] [facility] CHOL/HDL RATIO 4.23 <4.50 08/04/2016 11:[address] [facility] LDL CHOLESTEROL 111 <=130 mg/dL 08/04/2016 11:[address] [facility] PATIENT STATUS FASTING 08/04/2016 11:35 AM RECRUITER SPECIALIST [facility] Blood BLOOD SPECIMEN / Unknown Venipuncture / Unknown 08/04/2016 11:08 AM RECRUITER SPECIALIST 08/04/2016 11:08 AM RECRUITER SPECIALIST Loree SALCEDO CHEMISTRY [facility] [address] [place] [address], from Last 3 Months or Most Recently Relevant to Health Maintenance Care Teams Message Clerk Relationship Specialty Start Date End Date Loree Chamberlain PA [address] [place] [address] PCP - General Family Practice 05/02/14
== END 2024-05-02 11:00 | disposition home or self-care (01) ==
LOC: AMB 05-17 15:41
PROVIDERS: PCP Physician Assistant Medical; Visit Provider Family Medicine
DX: M54.9 Dorsalgia, unspecified (principal)
CPT/HCPCS: A0425; A0427

== ENCOUNTER 2024-05-02 11:28 | Emergency (ER) | payer OTHER, SELFPAY ==
--- NOTE | 2024-05-02 11:33 | CRLHL7_ITS ---
For Patients: As a result of the Century Cures Act, medical imaging exams and procedure reports are released immediately into your electronic medical record. You may view this report before your referring provider. If you have questions, please contact your health care provider. INDICATION: Right leg and low back pain, hurt 2 weeks ago at work. TECHNIQUE: CT lumbar spine without contrast. COMPARISON: None FINDINGS: Vertebrae: Alignment is normal. There are no fractures or suspicious bony lesions. Congenital or remote fracture at the inferior facet of L2 which appears well corticated (5, 42; 7, 41). Discs and facet joints: Broad-based annular bulge with mild ligamentum flavum hypertrophy at L3-4 causing mild left foraminal stenosis. Facet hypertrophy and disc space narrowing at L4-5 with ligamentum flavum hypertrophy and broad-based annular bulge. There is also a slight eccentric right lateral protrusion combined with this disc bulge. This contributes to [id number] central spinal canal stenosis, mild left foraminal stenosis and severe right foraminal stenosis (series 3, image 99; series 8, image 45). Facet hypertrophy at L5-S1 without significant stenosis. Mild bilateral L5-S1 pseudoarthrosis. Extraspinal findings: Atherosclerosis. IMPRESSION: Moderate multilevel degenerative disc disease as detailed above. With a history of the patient`s right leg/low back pain, most significant stenosis is at the L4-5 level where a broad-based annular bulge and slight right lateral protrusion combined with facet and ligamentum flavum hypertrophy cause severe right foraminal stenosis. Please note that all CT scans at this facility use dose modulation, iterative reconstruction, and/or weight-based dosing when appropriate to reduce radiation dose to as low as reasonably achievable. Dictated by Tal Trimble MD @ 05/02/2024 12:45:43 PM (Electronically Signed)
[2024-05-02 11:36] VITALS: BP 183/109; PULSE 107; RESP 20; TEMP 37.1; O2SAT 99; BMI 22.6
--- NOTE | 2024-05-02 11:38 | ED_ITS ---
HPI - General Adult General Chief complaint: Back Injury/Pain Stated complaint: Back pain Time Seen by Provider: 05/02/24 11:29 History of Present Illness HPI narrative: 50-year-old white male who works at [employer], here is back at work in a work comp injury it sounds like a couple weeks ago, has been to the ER couple of times for pain medication and management. He has had right leg symptoms as well. He was scheduled to get an MRI but apparently this has not happened. He scheduled to see Loree Douglas for primary care today. He bent over today and his back went bad he had trouble getting out of the house, he had pain down his right leg. He has done a steroid course. He has been on narcotic medicines well as gabapentin and he has tried Toradol that seemed to help him the most per his . He has been on muscle relaxant as well. He has had no history of significant back problems. By his report, he reports he has had no advanced imaging of his back. I do not see any detailed record of imaging in his back. Related Data Home Medications ?Medication ?Instructions ?Recorded ?Confirmed cyclobenzaprine 10 mg tablet 10 mg PO BID PRN muscle spasm 04/30/24 04/30/24 gabapentin 100 mg capsule 100 mg PO 3XD 04/30/24 04/30/24 Previous Rx's ?Medication ?Instructions ?Recorded gabapentin 300 mg capsule 300 - 600 mg (1 - 2 x 300 mg) PO 04/30/24 TID #120 caps prednisone 20 mg tablet 20 - 40 mg (1 - 2 x 20 mg) PO 04/30/24 DAILY #11 tabs ketorolac 10 mg tablet 10 mg PO Q8H PRN pain 5 days #20 05/02/24 tabs Allergies Allergy/AdvReac Type Severity Reaction Status Date / Time No Known Drug Allergies Allergy Verified 04/30/24 06:05 Review of Systems Status of ROS: Reports: 6 or more systems reviewed and unremarkable except as noted in History and below Narrative: No bowel or bladder dysfunction, fever, chills, perineal numbness. [facility] Social History Smoking Status: Current every day smoker Do you use any of these nicotine containing products: None Second hand tobacco smoke exposure: Yes How often do you have a drink containing alcohol: never AUDIT-C Alcohol total score: 0 Non-prescribed substance use: denies use Exam Narrative: Exam Narrative: Objective patient is in mild distress, brought in by ambulance. They have given him 50 of fentanyl and half a mg Ativan. Alert orient x3 No palpable back tenderness the patient has significant pain down his right leg and pain in the right low back. By his complaint He has got normal strength in lower extremities, he is able lift his legs off the table, he has a positive straight leg raise on the right with pain down his leg at about 45?. Const: Vital Signs, click to edit/add: Vital Signs - 24 hr 05/02/24 11:36 Temperature 98.7 F Pulse Rate [Pulse Oximeter] 107 H Respiratory Rate 20 Blood Pressure [Ri ght Upper Arm] 183/109 H Pulse Oximetry 99 Oxygen Delivery Me thod Room Air Course Vital Signs Vital signs: Initial Vital Signs Temperature 98.7 F 05/02/24 11:36 Temperature Source Temporal Artery Scan 05/02/24 11:36 Pulse Rate 107 H 05/02/24 11:36 Respiratory Rate 20 05/02/24 11:36 Blood Pressure 183/109 H 05/02/24 11:36 Blood Pressure Mean 133 H 05/02/24 11:36 Pulse Oximetry 99 05/02/24 11:36 Oxygen Delivery Method Room Air 05/02/24 11:36 Vital Signs Temperature 98.7 F 05/02/24 11:36 Pulse Rate 107 H 05/02/24 11:36 Respiratory Rate 20 05/02/24 11:36 Blood Pressure 183/109 H 05/02/24 11:36 Pulse Oximetry 99 05/02/24 11:36 Oxygen Delivery Method Room Air 05/02/24 11:36 Temperature 98.7 F 05/02/24 11:36 Pulse Rate 107 H 05/02/24 11:36 Respiratory Rate 20 05/02/24 11:36 Blood Pressure 183/109 H 05/02/24 11:36 Pulse Oximetry 99 05/02/24 11:36 Oxygen Delivery Method Room Air 05/02/24 11:36 Medications Administered Medications: Discontinued Medications Generic Name Dose Route Start Last Admin Trade Name Freq PRN Reason Stop Dose Admin Ketorolac Tromethamine 30 mg 05/02/24 11:33 05/02/24 11:45 Ketorolac 30 Mg/Ml Inj IVP 05/02/24 11:34 30 mg ONCE ONE Administration Methylprednisolone Sodium Succinate 125 mg 05/02/24 11:35 05/02/24 11:44 Methylprednisolone Sod Succ 62.5 Mg/Ml (125) IVP 05/02/24 11:36 125 mg ONCE ONE Administration Morphine Sulfate 10 mg 05/02/24 11:33 05/02/24 11:44 Morphine 10 Mg/Ml Inj IM 05/02/24 11:34 10 mg ONCE ONE Administration Medical Decision Making MDM Narrative Medical decision making narrative: [age] white male with work comp injury with couple week history history of low back pain and right leg pain, consistent with right sided radiculopathy. I think at this point in the ER given the expeditious nature of his workup needed will get a CT scan of his back, will give him IV Toradol 30 mg also given 10 mg IM morphine. Disposition pending findings above. Will give 1 dose of Solu- Medrol IV as well. Addendum: 12:54 p.m. 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 Will set him up to see Dr. Silvestre ramírez for an epidural steroid injection transforaminal at the L4-5 level on the right. Pain medicine from clinic, home today. Light activity. Sounds like he has narcotics at home and gabapentin, will add Toradol to his regimen acid not take any other anti- inflammatory. His and he were comfortable plan. Discharge Plan Discharge Clinical Impression: Acute lumbar radiculopathy Patient Disposition: Home w/ Parent or Adult Condition: Improved Additional Instructions: Will attempt to set up an epidural steroid injection for you, use her medicines at home and will give you Toradol as well to use as needed 3 times a day. Would recommend you do not take any Advil or Aleve with the Toradol. Expect a call from [facility] within 24-48 hours to set up an epidural steroid injection. If you haven't received a call by then, please call [phone]. Activity Level: Light activity Discharge Diet: Regular Prescriptions: New ketorolac 10 mg tablet 10 mg PO Q8H PRN (Reason: pain) 5 Days Qty: 20 0RF No Action cyclobenzaprine 10 mg tablet 10 mg PO BID PRN (Reason: muscle spasm) gabapentin 100 mg capsule 100 mg PO 3XD gabapentin 300 mg capsule 300 - 600 mg PO TID Qty: 120 0RF Rx Instructions: 1 tablet by mouth in the morning, 1 in the afternoon and 2 tablets at bedtime. prednisone 20 mg tablet 20 - 40 mg PO DAILY Qty: 11 0RF Rx Instructions: 2 tablets by mouth each morning starting 10/15 for 4 days, then 1 tablet by mouth daily until gone Follow Up/Referrals: Loree Chamberlain PA-C [Primary Care Provider] - Stand Alone Forms: [employer] Info Instructions
[2024-05-02] MEDS: METHYLPREDNISOLONE SOD SUCC 62.5 MG/ML (125) 125 MG IVP (11:44)
[2024-05-02] MEDS: MORPHINE 10 MG/ML inj IM (11:44)
[2024-05-02] MEDS: KETOROLAC 30 MG/ML inj IVP (11:45)
--- OUTSIDE RECORDS SUMMARY | 2024-05-02 11:53 | XMS_ITS | Clinical Summary ---
Author Organization [employer] [facility] Address [place], [place] [address] Care Team Providers Care Sandblaster Paint Sprayer Name Role Phone Loree Chamberlain Primary Care [...] Type Department Care Team Description 04/24/2024 Telephone [facility] [facility] [place] [address] Loree Chamberlain PA Results (XRAYS ) 04/23/2024 2:15 PM CDT Ancillary Procedure [address] [address] 04/23/2024 2:00 PM CDT Ancillary Procedure [address] [address] 04/23/2024 1:20 PM CDT Office [place] [address] Loree Chamberlain PA Occ Med (Follow up. Nothing that was given to him last visit has really helped much. R ankle is bothering him, asking for an XR.) 04/23/2024 Travel 04/18/2024 [place] [address] Rita Ramos PA Pain; Work Note 04/17/[address] [address] Rita Ramos PA Results 04/16/2024 12:45 PM CDT Ancillary Procedure [address] [address] 04/16/2024 11:35 AM CDT Office Visit [address] [address] Rita Ramos PA Occ Med (04/13 evening [...] T Respiratory Rate 18 07/26/2023 7:08 PM LDR RN Oxygen Saturation 96% 04/16/2024 11: 43 AM CDT Inhaled Oxygen Concentration - - Weight 67.5 kg (148 lb 12.8 oz) 04/23/2024 1:25 PM CDT Height 165.1 cm (5' 5) 04/02/2022 9:54 AM CDT Body Mass Index 24.76 04/02/2022 9:54 AM CDT Plan of Treatment Upcoming Encounters Date Type Department Care Team (Late st Contact Info) Description 05/02/2024 2:20 PM CDT Office Visit [facility] [address] [place] [address] Loree Chamberlain PA [address] [place] [address] 05/17/2024 2:45 PM CDT Ancillary Procedure [facility] [address] [place] [address] Health Maintenance Due Date Last Done Comments [...] REFLEX MEASURED LDL Routine 08/04/2016 11:08 AM LDR RN Screening cholesterol level from Last 3 Months [...] W REFLEX MEASURED LDL (08/04/2016 11:08 AM LDR RN) CHOLESTEROL,TOTAL 169 100 - 199 mg/dL 08/04/2016 11:35 AM LDR RN [facility] TRIGLYCERIDES 91 <150 mg/dL 08/04/2016 11:35 AM LDR RN [facility] HDL CHOLESTEROL 40(L) >40 mg/dL 7 11:35 AM LDR RN [facility] NON-HDL CHOLESTEROL 129 <145 mg/dl 08/04/2016 11:35 AM LDR RN [facility] CHOL/HDL RATIO 4.23 <4.50 08/04/2016 11:35 AM LDR RN [facility] LDL CHOLESTEROL 111 <=130 mg/dL 08/04/2016 11:35 AM LDR RN [facility] PATIENT STATUS FASTING 08/04/2016 11:35 AM LDR RN [facility] Blood BLOOD SPECIMEN / Unknown Venipuncture / Unknown 08/04/2016 11:08 AM LDR RN 08/04/2016 11:08 AM LDR RN Loree SALCEDO CHEMISTRY [facility] [address] [place] [address], from Last 3 Months or Most Recently Relevant to Health Maintenance Care Teams Sandblaster Paint Sprayer Relationship Specialty Start Date End Date Loree Chamberlain PA [address] [place] [address] PCP - General Family Practice 05/02/14
== END 2024-05-02 13:24 | disposition home or self-care (01) ==
PROVIDERS: Emergency Provider Family Medicine; PCP Physician Assistant Medical
DX: M54.17 Radiculopathy, lumbosacral region (principal); Y99.0 Civilian activity done for income or pay
CPT/HCPCS: 72131; 96372; 96374; 96375; 99284; J1885; J2270; J2919

== ENCOUNTER 2024-05-11 11:08 | Outpatient (CLI) | payer OTHER, SELFPAY ==
--- OUTSIDE RECORDS SUMMARY | 2024-05-11 11:15 | XMS_ITS | Clinical Summary ---
Author Organization [employer] [facility] [employer] Address [place], [place] [address] Care Team Providers Care Set Decorator Name Role Phone Loree Chamberlain Primary Care [...] needed for Pain. 28 Tablet 12/27/2022 Active cyclobenzaprine (FLEXERIL) 10 mg tabletIndications:A cute midline low back pain with right-sided sciatica,Right lumbar radiculopathy Take 1 Tablet (10 mg) by mouth 2 times daily if needed for Muscle Spasm. 30 Tablet 04/23/2024 Active gabapentin (NEURONTIN) 300 mg capsuleIndications: Acute midline low back pain with right-sided sciatica,Right lumbar radiculopathy Take 1 Capsule (300 mg) by mouth three times daily. 60 Capsule 05/02/2024 Active gabapentin (NEURONTIN) 100 mg capsuleIndications: Acute midline low back pain with right-sided sciatica Take 1 Capsule (100 mg) by mouth three times daily. 90 Capsule 04/16/2024 10/02/202 4 Discontinue d(*Medicati on adjustment) gabapentin (NEURONTIN) 100 mg capsuleIndications: Acute midline low back pain with right-sided sciatica Take 100 mg in the morning, 100 mg at noon, and 300 mg at bedtime. 90 Capsule 04/18/2024 4 Discontinue d(*Medicati on adjustment) Active Problems Problem Noted Date Diagnosed Date Tobacco abuse 05/01/2013 Allergic rhinitis 04/26/2013 Encounters Date Type Department Care Team Description 05/02/2024 2:20 PM CDT Office Visit [facility] [address] [place] [address] Loree Chamberlain PA Occ Med (Follow Up. Not doing well. Feeling worse hard to get around. felt okay when he woke up but when bent down to get pants it hurt way worse. Went to ER this Morning by ambulance. Just left there.) 05/02/2024 Orders Only [facility] Scanner 1 scan: (1-Ord) [facility], CT LUMBAR SPINE WO CONTRAST, 05/02/2024 05/02/2024 Travel 04/24/2024 Telephone [facility] [address] [place] [address] Loree Chamberlain PA Results (XRAYS ) 04/23/2024 2:15 PM CDT Ancillary Procedure [address] [address] 04/23/2024 2:00 PM CDT Ancillary Procedure [address] [address] 04/23/2024 1:20 PM CDT Office Visit [facility] [address] [place] [address] Loree Chamberlain PA Occ Med (Follow up. Nothing that was given to him last visit has really helped much. R ankle is bothering him, asking for an XR.) 04/23/2024 Travel 04/18/2024 Telephone [facility] [address] [place] [address] Rita Ramos PA Pain; Work Note 04/17/2024 Telephone [facility] [address] [facility] [place] [id number] Rita Ramos PA Results 04/16/2024 12:45 PM CDT Ancillary Procedure [facility] [address] [facility] [address] 04/16/2024 11:35 AM CDT Office Visit [facility] [address] [facility] [place] [id number] Rita Ramos PA Occ Med (04/13 evening at work. Lower back, and right sided- pain is radiating down the right leg to the ankle. ) 04/16/2024 Travel from Last 3 Months Immunizations Name Administration Dates Next Due AMB Influenza, IIV3 (Age >=3 years)(Flu Clinic Only) 04/03/2013,04/14/2012 COVID-19 vaccine ([employer] B.[employer]J& J) PF, MDV 10/03/2020 Influenza, IIV3 (Age 6-35 mos) 04/19/2011,2009,04/18/2009 Influenza, IIV3 (Age >=3 years) 04/18/20 15,04/03/2013,04/14/2012,05/08/20 08 Influenza, IIV4 04/02/2014 Tdap 03/22/2012 Social History Tobacco Use Types Packs/Day Years Used Date Smoking Tobacco: Every Day Cigarettes 1 34.7 Started: 08/21/1989 Smokeless Tobacco: Never Tobacco Cessation:Ready to Q uit: No; Counseling Given: No Alcohol Use Standard Drinks/Week Comments No 0 [...] file 07/26/2023 Food Insecurity Answer Date Recorded Do you worry your food will run out before you are able to buy more? 1 07/26/2023 Transportation Needs Answer Date Record ed Lack of Transportation (Medical) 1 07/26/2023 Housing Stability Answer Date Recorded What is your housing situation today? 1 07/26/2023 Sex and Gender Information Value Date Recorded Sex Assigned at Not on file Gender Identity Not on file Sexual Orientation Not on file Obstetrics History Last Filed Vital Signs Vital Sign Reading Time Taken Comments Blood Pressure 170/94 05/02/2024 2:27 PM CDT Pulse 118 05/02/2024 2:27 PM CDT Temperature 36.6 ??C (97.9 ??F) 11/02/2023 1:41 PM CD T Respiratory Rate 18 07/26/2023 7:08 PM PATIENT ADVOCATE Oxygen Saturation 100% 05/02/2024 2:27 PM CDT Inhaled Oxygen Concentration - - Weight 66 kg (145 lb 8 oz) 05/02/2024 2:27 PM CD T Height 165.1 cm (5' 5) 04/02/2022 9:54 AM CDT Body Mass Index 24.21 04/02/2022 9:54 AM CDT Plan of Treatment Upcoming Encounters Date Type Department Care Team (Late st Contact Info) Description 05/11/2024 11:40 AM CDT Office Visit [facility] [address] [place] [address] Garrett Alvarez MD [address] [place] [address] Arrived 05/18/2024 10:10 AM CDT Office Visit [facility] [address] [place] [address] Loree Chamberlain PA [address] [place] [address] Health Maintenance Due Date Last Done Comments [...] Procedure Name Priority Date/Time Associated Diagnosis Comments AMB EPIDURAL STEROID INJECTION CORRY 05/11/2024 8:01 AM CDT Acute midline low back pain with right-sided sciatica Right lumbar radiculopathy SCAN-CT INTERPRETATION 12:00 AM CDT XR FOOT 3 VIEWS RIGHT Routine 04/23/2024 2:07 PM CDT Foot pain, right Acute right ankle pain XR ANKLE 3 VIEWS RIGHT Routine 2:06 PM CDT Foot pain, right Acute right ankle pain XR SPINE LUMBAR 3 VIEWS Routine 04/16/2024 12:47 PM CDT Acute midline low back pain with right-sided sciatica LIPID PANEL W REFLEX MEASURED LDL Routine 08/04/2016 11:08 AM PATIENT ADVOCATE Screening cholesterol level from Last 3 Months or Most Recently Relevant to Health Maintenance Results * SCAN-CT INTERPRETATION (05/02/2024 12:00 AM CDT) Anatomical Region Laterality Modality Other Scanner OTHER * XR FOOT 3 VIEWS RIGHT (04/23/2024 [...] For Patients: As a result of the s Act, medical imagingexams and procedure reports are [...] W REFLEX MEASURED LDL (08/04/2016 11:08 AM PATIENT ADVOCATE) CHOLESTEROL,TOTAL 169 100 - 199 mg/dL 08/04/2016 11:35 AM PATIENT ADVOCATE [facility] TRIGLYCERIDES 91 <150 mg/dL 08/04/2016 11:[address] [facility] HDL CHOLESTEROL 40(L) >40 mg/dL 7 11:[address] [facility] NON-HDL CHOLESTEROL 129 <145 mg/dl 08/04/2016 11:[address] [facility] CHOL/HDL RATIO 4.23 <4.50 08/04/2016 11:[address] [facility] LDL CHOLESTEROL 111 <=130 mg/dL 08/04/2016 11:[address] [facility] PATIENT STATUS FASTING 08/04/2016 11:[address] [facility] Blood BLOOD SPECIMEN / Unknown Venipuncture / Unknown 08/04/2016 11:08 AM PATIENT ADVOCATE 08/04/2016 11:08 AM PATIENT ADVOCATE Loree SALCEDO CHEMISTRY [facility] [address] [place] [id number], from Last 3 Months or Most Recently Relevant to Health Maintenance Care Teams Set Decorator Relationship Specialty Start Date End Date Loree Chamberlain PA [address] [place] [id number] PCP - General Family Practice 05/02/14
== END 2024-05-11 11:09 | disposition home or self-care (01) ==
LOC: INJ CL 11:09
PROVIDERS: PCP Physician Assistant Medical; Visit Provider Family Medicine
DX: M54.16 Radiculopathy, lumbar region (principal); M51.26 Other intervertebral disc displacement, lumbar region
CPT/HCPCS: 64483; 64494; J1100; Q9966

== ENCOUNTER 2024-09-18 15:22 | Emergency (ER) | payer OTHER, SELFPAY ==
--- OUTSIDE RECORDS SUMMARY | 2024-09-18 15:24 | XMS_ITS | Clinical Summary ---
Author Organization [facility] Address [address] [place] [id number] Care Team Providers Care Soldering Machine Setter Name Role Phone Loree Chamberlain Primary Care Provider Allergies No known active allergies Medications omeprazole (PRILOSEC) 20 mg Delayed-Release capsule Take 20 mg by mouth once daily before a meal. 0 04/03/20 08 Active fluticasone (50 mcg per actuation) nasal solution (FLONASE)Indicati ons:Subacute maxillary sinusitis inhale 1 spray into both nostrils by intranasal route 2 times daily. 3 Bottle 3 12/18/19 17 Active gabapentin (NEURONTIN) 300 mg capsuleIndication s:Right lumbar radiculopathy,Acu te midline low back pain with right-sided sciatica Take 1 Capsule (300 mg) by mouth three times daily. 60 Capsule 06/08/20 24 Active Additional Information Patient taking differently:300 mg OralTID PRN, Indications: neuropathic pain, Informant: Patient's Recall, Reported on 09/14/2024 diphenhydrAMINE (Allergy) 25 mg tablet Take 25 mg by mouth once daily if needed (Allergies). Active docusate (COLACE) 100 mg capsuleIndication s:Postoperative pain after spinal surgery Take 1 Capsule (100 mg) by mouth two times daily for 14 days. 28 Capsule 5 12:03 PM DEMAND PLANNING MANAGER 09/16/19 25 025 Active methocarbamoL 750 mg tabletIndications :Postoperative pain after spinal surgery Take 1 Tablet (750 mg) by mouth four times daily for 14 days. 56 Tablet 5 12:03 PM DEMAND PLANNING MANAGER 09/16/19 25 025 Active ondansetron (ZOFRAN ODT) 4 mg disintegrating tabletIndications :Post-op pain Place 1 Tablet (4 mg) on the tongue two times daily for 7 days. 14 Tablet 5 12:03 PM DEMAND PLANNING MANAGER 09/16/19 25 025 Active acetaminophen (TYLENOL EXTRA STRGTH) 500 mg tabletIndications :Postoperative pain after spinal surgery Take 2 Tablets (1,000 mg) by mouth every 8 hours for 14 days. Max acetaminophen dose: 4000mg in 24 hrs. 84 Tablet 5 12:03 PM DEMAND PLANNING MANAGER 09/16/19 25 025 Active oxyCODONE (ROXICODONE) 5 mg immediate release tabletIndications :Postoperative pain after spinal surgery Take 1 Tablet (5 mg) by mouth every 4 hours if needed for Pain. 35 Tablet 5 12:03 PM DEMAND PLANNING MANAGER 09/16/19 25 025 Active WalkerIndications :Postoperative pain after spinal surgery Walker with front wheels for home use for 3 months. 1 Each 09/16/19 25 Active naproxen (NAPROSYN) 500 mg tabletIndications :Acute midline low back pain with right-sided sciatica,Right lumbar radiculopathy,[place] of right lower extremity,Lumbar herniated disc Take 1 Tablet (500 mg) by mouth every 12 hours if needed for Pain. 60 Tablet 1 06/26/20 24 025 Discontin ued(*IP Discontin ued) acetaminophen (TYLENOL EXTRA STRGTH) 500 mg tabletIndications :Acute midline low back pain with right-sided sciatica,Right lumbar radiculopathy,[place] of right lower extremity,Lumbar herniated disc Take 1 Tablet (500 mg) by mouth every 6 hours. Max acetaminophen dose: 4000mg in 24 hrs. 100 Tablet 3 06/26/20 24 025 Discontin ued(*IP Discontin ued) cyclobenzaprine (FLEXERIL) 10 mg tabletIndications :Acute midline low back pain with right-sided sciatica,Right lumbar radiculopathy TAKE 1 TABLET BY MOUTH TWICE A DAY NEEDED FOR MUSCLE SPASMS 30 Tablet 08/08/19 25 025 Discontin ued(*IP Discontin ued) ibuprofen (ADVIL; MOTRIN) 200 mg tablet Take 4 Tablets (800 mg) by mouth every 6 hours. 08/27/19 25 025 Discontin ued(*IP Discontin ued) Active Problems Problem Noted Date Diagnosed Date Spinal stenosis of lumbar re gion with neurogenic claudication 09/14/2024 Allergic rhinitis 09/14/2024 Tobacco abuse 05/01/2013 Allergic rhinitis 04/26/2013 Encounters Date Type Department Care Team Description 09/18/2024 Nurse Triage [facility] [address] [place] [address] Loree Chamberlain PA Musculoskeletal Problem 09/17/2024 Patient Outreach [facility] [address] [place] [address] Jaquelin Graham, RN Primary RN Care Management; Hospital F/U (LACE 20) 09/14/2024 7:45 AM DEMAND PLANNING MANAGER Anesthesia Event [facility] [address] [place] [address] Murali Kiran MD Klein, Lindsay B, ELLIE 09/14/2024 7:15 AM DEMAND PLANNING MANAGER - 09/14/2024 12:45 PM DEMAND PLANNING MANAGER Surgery [facility] [address] [place] [address] Benigno Khan MD Decompression - Lateral recess and foraminal L4 to: L5, Posterior Spine Fusion with Instrumentation L4 to: L5 09/14/2024 5:08 AM DEMAND PLANNING MANAGER - 09/15/2024 1:20 PM DEMAND PLANNING MANAGER Hospital Encounter [facility] [address] [place] [address] Benigno Khan MD Postoperative pain after spinal surgery (Primary Dx); Post-op pain Discharge Disposition: Home Self Care 09/13/2024 Travel 08/27/2024 9:30 AM DEMAND PLANNING MANAGER Office Visit [facility] [address] [place] [address] Loree Chamberlain PA [facility] Med (Follow up - stable) 08/27/2024 9:10 AM DEMAND PLANNING MANAGER Office Visit [facility] [address] [place] [address] Loree Chamberlain PA Preoperative Exam (back); Occ Med 08/27/2024 Telephone [facility] [address] [place] [address] Loree Chamberlain PA Medication Management 08/27/2024 Travel 08/07/2024 Refill [facility] [address] [place] [address] Loree Chamberlain PA Refill Request (Cyclobenzaprine) 08/03/[address] [address] Loree Chamberlain PA Form 07/27/2024 10:50 AM DEMAND PLANNING MANAGER Office Visit [address] [address] Loree Chamberlain PA Occ Med (Follow up - went to dentist and got the all clear, is waiting to hear back from surgeon) 07/27/[address] [address] Loree Chamberlain PA Form (FORM ) 07/27/[address] [address] Loree Chamberlain PA Follow Up 07/27/2024 Travel 07/02/[address] [address] Loree Chamberlain PA Letter For Work (Return to work ) 06/26/2024 10:10 AM DEMAND PLANNING MANAGER Office Visit [address] [address] Loree Chamberlain PA Occ Med (Recheck- still having pain down R leg) 06/26/2024 Travel 06/21/2024 Refill [facility] [address] [place] [address] Loree Chamberlain PA Refill Request (Cyclobenzaprine) from Last 3 Months Immunizations Name Administration Dates Next Due AMB Influenza, IIV3 (Age >=3 years)(Flu Clinic Only) 04/03/2013,04/14/2012 COVID-19 vaccine (Zee-J& J) PF, MDV 10/03/2020 Influenza, IIV3 (Age 6-35 mos) 04/19/2011,2009,04/18/2009 Influenza, IIV3 (Age >=3 years) 04/18/20 15,04/03/2013,04/14/2012,05/08/20 Influenza, IIV4 04/02/2014 Tdap 08/27/2024,03/22/2012 Social History Tobacco Use Types Packs/Day Years Used Date Smoking Tobacco: Every Day Cigarettes 1 35.1 Started: 08/21/1989 Smokeless Tobacco: Never Tobacco Cessation:Ready to Q uit: No; Counseling Given: No Alcohol Use Standard Drinks/Week Comments No 0 (1 standard drink = 0.6 oz pur e alcohol) PHQ-2 Answer Date Recorded PHQ-2 TOTAL SCORE 0 04/02/2022 Social Connections Answer Date Recorded Do you often feel lonely or isolated from those around you? 0 09/15/2024 Financial Resource Strain Answer Date R ecorded Difficulty of Paying Living Expenses 3 08/27/2024 Difficulty of Paying Living Expenses Not on file 08/27/2024 Food Insecurity Answer Date Recorded Do you worry your food will run out before you are able to buy more? 1 09/15/2024 Transportation Needs Answer Date Record ed Does lack of transportation keep you from medica l appointments? 1 09/15/2024 Does lack of transportation keep you from work, meetings or getting things that you need? 1 09/15/2024 Housing Stability Answer Date Recorded What is your housing situation today? 1 09/15/2024 Interpersonal Safety Answer Date Record ed Are you being hit, kicked, p ushed or yelled at (see row info)? No 09/15/2024 Interpersonal Safety Abuse 12 - 18 Not on file 09/15/2024 Interpersonal Safety Ambulatory Vulnerability No t on file 09/15/2024 Utilities Answer Date Recorded Do you have trouble paying f or utilities (for example, heat, electricity, water, phone)? 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 Not on file Not on file Not on fi le Obstetrics History Last Filed Vital Signs Vital Sign Reading Time Taken Comments Blood Pressure 144/82 09/15/2024 12:15 PM DEMAND PLANNING MANAGER Pulse 89 09/15/2024 12:15 PM DEMAND PLANNING MANAGER Temperature 36.8 C (98.2 F) 09/15/2024 7:53 AM DEMAND PLANNING MANAGER Respiratory Rate 16 09/15/2024 12:15 PM DEMAND PLANNING MANAGER Oxygen Saturation 96% 09/15/2024 12:15 PM DEMAND PLANNING MANAGER Inhaled Oxygen Concentration - - Weight 69.4 kg (153 lb) 09/14/2024 6:29 AM DEMAND PLANNING MANAGER Height 167.6 cm (5' 6) 09/14/2024 6:29 AM DEMAND PLANNING MANAGER Body Mass Index 24.69 09/14/2024 6:29 AM DEMAND PLANNING MANAGER Plan of Treatment Upcoming Encounters Date Type Department Care Team (Late st Contact Info) Description 2024 7:50 AM DEMAND PLANNING MANAGER Office Visit [facility] [address] [place] [address] Rita Ramos PA [address] [place] [address] Health Maintenance Due Date Last Done Comments HIV for age 15-65 1985 Hepatitis C screening for ag e 18-79 1988 Pneumococcal series for age 50+ (1 of 2 - PCV) 1989 Colonoscopy through age 75 09/22/[address] (for lung CA) ag e 50-80 2020 Zoster (shingles) series for age 50+ (1 of 2) 2020 Lipids for age 45-75 08/04/2021 08/04/2016 BMI (ht and wt on same day) for age 18+ 04/02/2023 04/02/2022, 08/27/2020, 02/08/2018, Additional history exists Depression screening for age 12+ 04/02/2023 04/02/2022, 08/21/2019, 09/05/2017, Additional history exists COVID-19 vaccine series ( season) 2024 10/03/2020 Influenza for age 50-64 03/18/2024 04/18/20 15, 04/02/2014, 04/03/2013, Additional history exists Tetanus booster 08/27/2034 08/27/2024, 03/22/2012 Tdap Completed 08/27/2024, 03/22/2012 Medical Devices Implanted Type Area Camera Mechanic Device Identifier Shelf Expiration Date Model / Serial / Lot Dino Lmbr 40x5.5mm Tsrh 3d Cvd Titnm - [id number] Implanted:Qty: 2 on 09/14/2024 by Benigno Khan MD at [facility] Spine Implants N/A: Spine Medtronic Spine/Ortho [id number] / / Putty Easypack 5cc Magnetos - [id number] Implanted:Qty: 1 on 09/14/2024 by Benigno Khan MD at [facility] N/A: Spine NeuMoDx [employer]os [employer] 04/17/2029 [id number] / / [id number] Set Screw Lmbr Tsrh 3dx - [id number] Implanted:Qty: 4 on 09/14/2024 by Benigno Khan MD at [facility] N/A: Spine Medtronic Spine/Ortho [id number] / / Screw Lmbr Post 6.5x40mm Tsrh 3dx Og Thin Va - [id number] Implanted:Qty: 4 on 09/14/2024 by Benigno Khan MD at [facility] N/A: Spine Medtronic Spine/Ortho [id number] / / Cnnctr Lmbr Sm Tsrh 3dx Offsettitnm - [id number] Implanted:Qty: 4 on 09/14/2024 by Benigno Khan MD at [facility] N/A: Spine Medtronic Spine/Ortho [id number] / / Procedures Procedure Name Priority Date/Time Associated Diagnosis Comments XR SPINE LUMBAR 2 VIEWS Routine 09/15/2024 9:51 AM DEMAND PLANNING MANAGER XR SPINE LUMBAR 2 VIEWS PORTABLE Routine 09/14/2024 11:18 AM DEMAND PLANNING MANAGER XR SPINE LUMBAR 2 VIEWS PORTABLE Routine 09/14/2024 11:17 AM DEMAND PLANNING MANAGER XR SPINE 1 VIEW PORTABLE Routine 09/14/2024 10:36 AM DEMAND PLANNING MANAGER XR SPINE 1 VIEW PORTABLE Routine 09/14/2024 8:39 AM DEMAND PLANNING MANAGER XR SPINE 1 VIEW PORTABLE Routine 09/14/2024 8:25 AM DEMAND PLANNING MANAGER ENDOTRACHEAL TUBE Routine 09/14/2024 8:1 4 AM DEMAND PLANNING MANAGER LAMINECTOMY DECOMPRESSION SPINE LEVEL 01 Tier 4 09/14/2024 7:11 AM DEMAND PLANNING MANAGER Stenosis, 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 HNP w/ Radiculopathy, Lumbar M51.16 Spondylolisthesis, Lumbar M43.16 Case Notes EDEN 4POST,[id number], SONALI/VERITO, as FUSION POSTERIOR SPINE LEVEL 01 Tier 4 09/14/2024 7:11 AM DEMAND PLANNING MANAGER Stenosis, 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 HNP w/ Radiculopathy, Lumbar M51.16 Spondylolisthesis, Lumbar M43.16 Case Notes CHRISTIANO GAYLE, SONALI/VERITO, as SCAN-OPERATIVE/PROCE DURE REPORT 09/14/2024 12:00 AM DEMAND PLANNING MANAGER SCAN-CARDIAC STRIP 09/14/2024 12 :00 AM DEMAND PLANNING MANAGER EKG 12 LEAD Routine 08/31/2024 4:12 PM DEMAND PLANNING MANAGER Preop general physical exam HI READING EKG - NO CHARGE, COMP ONLY Routine 08/31/2024 4:11 PM DEMAND PLANNING MANAGER Preop general physical exam BASIC METABOLIC PANEL Routine 08/27/2024 10:19 AM DEMAND PLANNING MANAGER Preop general physical exam CBC WITH AUTO DIFFERENTIAL Routine 08/27/2024 10:19 AM DEMAND PLANNING MANAGER Preop general physical exam LIPID PANEL W REFLEX MEASURED LDL Routine 08/04/2016 11:08 AM DEMAND PLANNING MANAGER Screening cholesterol level from Last 3 Months or Most Recently Relevant to Health Maintenance Results * XR SPINE LUMBAR 2 VIEWS (09/15/2024 9:51 AM DEMAND PLANNING MANAGER) Anatomical Region Laterality Modality LUMBAR SPINE Digital Radiogra phy 09/15/2024 10:2 8 AM DEMAND PLANNING MANAGER Impressions 09/15/2024 10:28 AM DEMAND PLANNING MANAGER 1. Status post posterior dino and pedicle screw fusion at L4-L5. Hardware intact. Alignment at that level maintained. Dictated by Remington Simpson MD @ Sep 15 2024 10:28AM (Electronically Signed) [email or web address] Narrative 09/15/2024 10:28 AM DEMAND PLANNING MANAGER For Patients: As a result of the Cures Act, medical imaging exams and procedure reports are released immediately into your electronic medical record. You may view this report before your referring provider. If you have questions, please contact your health care provider. HISTORY: Postoperative evaluation. TECHNIQUE: Two views of the lumbar spine. COMPARISON: 09/14/2024. FINDINGS: Status post posterior dino and pedicle screw fusion at L4-L5. Placed hardware appears intact and appropriately seated. Alignment at that level maintained. No fracture. Procedure Note Remington Simpson MD - 09/15/2024 For Patients: As a result of the Cures Act, medical imagingexams and procedure reports are released immediately into your electronicmedical record. You may view this report before your referring provider.If you have questions, please contact your health care provider. HISTORY: Postoperative evaluation. TECHNIQUE: Two views of the lumbar spine. COMPARISON: 09/14/2024. FINDINGS: Status post posterior dino and pedicle screw fusion at L4-L5. Placedhardware appears intact and appropriately seated. Alignment at that levelmaintained. No fracture. IMPRESSION: 1. Status post posterior dino and pedicle screw fusion at L4-L5. Hardwareintact. Alignment at that level maintained. Dictated by Remington Simpson MD @ Sep 15 2024 10:28AM (Electronically Signed) [email or web address] Angel SALCEDO GENERAL IMAGING Final Resu lt * XR SPINE LUMBAR 2 VIEWS PORTABLE (09/14/2024 11:18 AM DEMAND PLANNING MANAGER) Only the most recent of2 resultswithin the time period is included. Anatomical Region Laterality Modality Spine, LUMBAR SPINE Digital Radi ography Narrative 09/17/2024 1:34 PM DEMAND PLANNING MANAGER Indication: Spinal localization/intraoperative evaluation. Technique: Multiple radiographs of the lumbar spine. Comparison: None. Findings/impression: On initial radiographs, spinal localization devices project posterior to the L1 and L3 posterior elements. On later radiographs, spinal localization devices project posterior to the L4-5 posterior elements. On final radiographs, there has been placement of L4-5 bilateral transpedicular fixation screws. Benigno Khan MD GENERAL IMAGING Final Result * XR SPINE 1 VIEW PORTABLE (09/14/2024 10:36 AM DEMAND PLANNING MANAGER) Only the most recent of3 resultswithin the time period is included. Anatomical Region Laterality Modality Spine, CERVICAL SPINE, THORACIC SPINE, LUMBAR SP INE Digital Radiography Narrative 09/17/2024 1:34 PM DEMAND PLANNING MANAGER Indication: Spinal localization/intraoperative evaluation. Technique: Multiple radiographs of the lumbar spine. Comparison: None. Findings/impression: On initial radiographs, spinal localization devices project posterior to the L1 and L3 posterior elements. On later radiographs, spinal localization devices project posterior to the L4-5 posterior elements. On final radiographs, there has been placement of L4-5 bilateral transpedicular fixation screws. Benigno Khan MD GENERAL IMAGING Final Result * ETT (09/14/2024 8:14 AM DEMAND PLANNING MANAGER) Narrative Roscoe Carpenter, ELLIE Student - 09/14/2024 8:14 AM DEMAND PLANNING MANAGER Roscoe Carpenter CRNA Student 09/14/2024 8:14 AM Procedure: ETT Patient location during procedure: OR ETT Properties Mask Ventilation: easy and oral airway Final Technique: direct laryngoscopy Type: straight Location: oral Cuffed: yes Tube Size: 7.5 mm Stylet: yes Laryngoscope Blade: Mac Blade Size: 3 Cormack-Lehane Grade View: 1 Insertion Attempts: 1 Placement Verification: auscultation, end tidal CO2 and symmetrical chest wall movement Assessment: pharynx clear, atraumatic and dentition unchanged Secured at: 22 Measured From: teeth Bite Block: soft Difficulty: 0 (not difficult) Murali Kiran MD ANESTHESIA PX NOTE ORDERA BLES Final Result * SCAN-CARDIAC STRIP (09/14/2024 12:00 AM DEMAND PLANNING MANAGER) Narrative 09/14/2024 12:00 AM DEMAND PLANNING MANAGER Ordered by an unspecified provider. Other Clinical Staff OTHER Final Resul t * SCAN-OPERATIVE/PROCEDURE REPORT (09/14/2024 12:00 AM DEMAND PLANNING MANAGER) Narrative 09/14/2024 12:00 AM DEMAND PLANNING MANAGER Ordered by an unspecified provider. Other Clinical Staff OTHER Final Resul t * EKG 12 LEAD (08/31/2024 4:12 PM DEMAND PLANNING MANAGER) us Loree SALCEDO EKG ORD Final R esult * HI READING EKG - NO CHARGE, COMP ONLY (08/31/2024 4:11 PM DEMAND PLANNING MANAGER) us oLree SALCEDO PB - PROVIDER READINGS Final Result * (ABNORMAL) CBC AND DIFFERENTIAL (08/27/2024 10:19 AM DEMAND PLANNING MANAGER) WHITE BLOOD CELL COUNT 9.2 3.8 - 10.8 Thousand/u L [facility] RED BLOOD CELL COUNT 4.50 4.20 - 5.80 Million/uL [facility] HEMOGLOBIN 14.9 13.2 - 17.1 g/dL [facility] HEMATOCRIT 44.5 38.5 - 50.0 % [facility] MCV 98.9 80.0 - 100.0 fL [facility] MCH 33.1(H) 27.0 - 33.0 pg [facility] MCHC 33.5 32.0 - 36.0 g/dL [facility] Comment: For adults, a slight decrease in the calculated MCHC value (in the range of 30 to 32 g/dL) is most likely not clinically significant; however, it should be interpreted with caution in correlation with other red cell parameters and the patient's clinical condition. RDW 12.2 11.0 - 15.0 % [facility] PLATELET COUNT 422(H) 140 - 400 Thousand/u L [facility] MPV 9.7 7.5 - 12.5 fL [facility] ABSOLUTE NEUTROPHILS 5,474 1,500 - 7,800 cells/uL [facility] ABSOLUTE LYMPHOCYTES 2,245 850 - 3,900 cells/uL [facility] ABSOLUTE MONOCYTES 938 200 - 950 cells/uL [facility] ABSOLUTE EOSINOPHILS 460 15 - 500 cells/uL [facility] ABSOLUTE BASOPHILS 83 0 - 200 cells/uL [facility] NEUTROPHILS 59.5 % [facility] LYMPHOCYTES 24.4 % [facility] MONOCYTES 10.2 % [facility] EOSINOPHILS 5.0 % [facility] BASOPHILS 0.9 % [facility] Blood BLOOD SPECIMEN / Unknown 08/27/2024 10:19 AM DEMAND PLANNING MANAGER 08/27/2024 10:19 AM DEMAND PLANNING MANAGER us Loree SALCEDO HEMATOLOGY Final R esult [facility] [address] [place] [address], [facility] [address] [place] [address] * BASIC METABOLIC PANEL (08/27/2024 10:19 AM DEMAND PLANNING MANAGER) GLUCOSE 84 65 - 99 mg/dL [facility] Comment: Fasting reference interval UREA NITROGEN (BUN) 22 7 - 25 mg/dL [facility] CREATININE 0.89 0.70 - 1.30 mg/dL [facility] EGFR 102 > OR = 60 mL/min/1. 73m2 [facility] BUN/CREATININE RATIO SEE NOTE: 6 - 22 (calc) [facility] Comment: Not Reported: BUN and Creatinine are within reference range. SODIUM 143 135 - 146 mmol/L [facility] POTASSIUM 4.1 3.5 - 5.3 mmol/L [facility] CHLORIDE 107 98 - 110 mmol/L [facility] CARBON DIOXIDE 27 20 - 32 mmol/L [facility] ELECTROLYTE BALANCE 9 7 - 17 mmol/L (calc) [facility] CALCIUM 9.5 8.6 - 10.3 mg/dL [facility] Blood BLOOD SPECIMEN / Unknown 08/27/2024 10:19 AM DEMAND PLANNING MANAGER 08/27/2024 10:19 AM DEMAND PLANNING MANAGER Loree SALCEDO CHEMISTRY Final R esult [employer] [facility] [address] [place] [address], [address] [address] * (ABNORMAL) LIPID PANEL W REFLEX MEASURED LDL (08/04/2016 11:08 AM DEMAND PLANNING MANAGER) CHOLESTEROL,TOTAL 169 100 - 199 mg/dL 08/04/2016 11:[address] [facility] TRIGLYCERIDES 91 <150 mg/dL 08/04/2016 11:[address] [facility] HDL CHOLESTEROL 40(L) >40 mg/dL 7 11:[address] [facility] NON-HDL CHOLESTEROL 129 <145 mg/dl 08/04/2016 11:[address] [facility] CHOL/HDL RATIO 4.23 <4.50 08/04/2016 11:[address] [facility] LDL CHOLESTEROL 111 <=130 mg/dL 08/04/2016 11:[address] [facility] PATIENT STATUS FASTING 08/04/2016 11:35 AM DEMAND PLANNING MANAGER [facility] Blood BLOOD SPECIMEN / Unknown Venipuncture / Unknown 08/04/2016 11:08 AM DEMAND PLANNING MANAGER 08/04/2016 11:08 AM DEMAND PLANNING MANAGER Loree SALCEDO CHEMISTRY Final R esult [facility] [address] [place] [address], from Last 3 Months or Most Recently Relevant to Health Maintenance Insurance [facility] Advance Directives * Full Code (Latest Code Status on File) Date Activated Date Inactivated Comments 09/14/2024 6:22 PM 09/15/2024 3:27 PM Question Answer Comments Code Status Discussion: Reviewed Preferences Care Teams Soldering Machine Setter Relationship Specialty Start Date End Date Loree Chamberlain [place] [place] [address] PCP - General Family Practice 05/02/14
[2024-09-18 15:39] VITALS: BP 136/70; PULSE 104; TEMP 36.6; O2SAT 99
--- NOTE | 2024-09-18 16:19 | ED.GENADULT ---
HPI - General Adult General Time Seen by Provider: 16:19 Date Seen: 09/18/24 Chief complaint: Extremity Pain/Injury, Lower Stated complaint: Post op R ankle sore Time Seen by Provider: 09/18/24 16:18 Source: patient Mode of arrival: ambulatory Limitations: no limitations History of Present Illness HPI narrative: 53-year-old male who comes in today with ankle pain. Patient had decompression laminectomy and posterior fusion on September 14, discharged from the hospital September 15. Patient says he was feeling good for couple of days and then today has right ankle pain. He describes this as on the top of the foot and also wrapping around the ankle. No known injury, denies swelling or redness, no calf pain. On further questioning, it sounds like he actually has had this pain since March when his back started bothering him but it was worse this morning when he got up and so he came to the emergency department. Related Data Home Medications ?Medication ?Instructions ?Recorded ?Confirmed cyclobenzaprine 10 mg tablet 10 mg PO BID PRN muscle spasm 04/30/24 04/30/24 gabapentin 100 mg capsule 100 mg PO 3XD 04/30/24 04/30/24 Previous Rx's ?Medication ?Instructions ?Recorded gabapentin 300 mg capsule 300 - 600 mg (1 - 2 x 300 mg) PO 04/30/24 TID #120 caps prednisone 20 mg tablet 20 - 40 mg (1 - 2 x 20 mg) PO 04/30/24 DAILY #11 tabs ketorolac 10 mg tablet 10 mg PO Q8H PRN pain 5 days #20 05/02/24 tabs diclofenac sodium 3 % topical gel 1 applic topical BID #100 grams 09/18/24 Allergies Allergy/AdvReac Type Severity Reaction Status Date / Time No Known Drug Allergies Allergy Verified 04/30/24 06:05 [facility] Social History Smoking Status: Current every day smoker Do you use any of these nicotine containing products: None Second hand tobacco smoke exposure: Yes How often do you have a drink containing alcohol: never AUDIT-C Alcohol total score: 0 Non-prescribed substance use: denies use Exam Narrative: Exam Narrative: General: well nourished , NAD Head: Atraumatic and normocephalic ENT: External ears and external nose are normal Eyes: Conjunctiva clear, pupils are equal reactive, external ocular motions are intact Neck: Full spontaneous range of motion of the neck Lungs: No respiratory distress Musculoskeletal: Mild tenderness on the dorsum of the right foot with little bit of tenderness at the Achilles tendon insertion as well. No joint effusion, no warmth or redness. No calf tenderness. Pain with resisted ankle dorsiflexion and with passive plantar flexion. Neurologic: No gross focal neurologic deficits Skin: No rashes Psych: Mood and affect are appropriate Const: Vital Signs, click to edit/add: Vital Signs - 24 hr 09/18/24 15:39 09/18/24 17:50 Temperature 97.8 F 97.8 F Pulse Rate [Pulse Oximeter] 104 H 103 H Respiratory Rate 18 Blood Pressure [Ri ght Upper Arm] 136/70 148/87 H Pulse Oximetry 99 99 Oxygen Delivery Me thod Room Air Room Air Course Course ED Course: Reviewed most recent admission from September 14 to September 15 when patient was admitted for decompression at L4 and L5 with L4-5 fusion. Patient seen examined, presents today with right ankle pain. He has had this for several months but was worse today soaked decided to come in. On exam here, patient is mildly tachycardic, no chest pain or shortness of breath, no abdominal pain, nausea, or vomiting in the tachycardia improved at rest. The right ankle does not have any warmth, erythema, or joint effusion to suggest septic arthritis or crystal arthropathy. Tenderness on the dorsum of the ankle anteriorly with pain with resisted dorsiflexion and passive plantar flexion. Symptoms are most consistent with musculoskeletal pain. We did discuss treatment for this. At this point would avoid immobilization as patient just had back surgery and would like to avoid disrupting his gait with his recent back surgery. Continue medication for treatment, ice before and after activity, consider Rickey wrap. Patient will be given diclofenac topical as his surgeon instructed him not to take ibuprofen Vital Signs Vital signs: Initial Vital Signs Temperature 97.8 F 09/18/24 15:39 Temperature Source Temporal Artery Scan 09/18/24 15:39 Pulse Rate 104 H 09/18/24 15:39 Blood Pressure 136/70 09/18/24 15:39 Blood Pressure Mean 92 09/18/24 15:39 Pulse Oximetry 99 09/18/24 15:39 Oxygen Delivery Method Room Air 09/18/24 15:39 Vital Signs Temperature 97.8 F 09/18/24 15:39 Pulse Rate 104 H 09/18/24 15:39 Blood Pressure 136/70 09/18/24 15:39 Pulse Oximetry 99 09/18/24 15:39 Oxygen Delivery Method Room Air 09/18/24 15:39 Temperature 97.8 F 09/18/24 17:50 Pulse Rate 103 H 09/18/24 17:50 Respiratory Rate 18 09/18/24 17:50 Blood Pressure 148/87 H 09/18/24 17:50 Pulse Oximetry 99 09/18/24 17:50 Oxygen Delivery Method Room Air 09/18/24 17:50 Discharge Plan Discharge Clinical Impression: Acute right ankle pain Patient Disposition: Home, Self-Care Condition: Stable Instructions: Arthralgia (ED) Additional Instructions: Apply ice twice a day for 10-15 minutes at a time, also before and after activity. Apply diclofenac gel as directed Follow-up next week with your primary care doctor to discuss physical therapy Activity Level: Activity as Tolerated Discharge Diet: Regular Prescriptions: New diclofenac sodium 3 % gel 1 applic topical BID Qty: 100 0RF No Action cyclobenzaprine 10 mg tablet 10 mg PO BID PRN (Reason: muscle spasm) gabapentin 100 mg capsule 100 mg PO 3XD gabapentin 300 mg capsule 300 - 600 mg PO TID Qty: 120 0RF Rx Instructions: 1 tablet by mouth in the morning, 1 in the afternoon and 2 tablets at bedtime. prednisone 20 mg tablet 20 - 40 mg PO DAILY Qty: 11 0RF Rx Instructions: 2 tablets by mouth each morning starting 10/15 for 4 days, then 1 tablet by mouth daily until gone ketorolac 10 mg tablet 10 mg PO Q8H PRN (Reason: pain) 5 Days Qty: 20 0RF Follow Up/Referrals: Loree Chamberlain PA-C [Primary Care Provider] - Stand Alone Forms: [employer] Info Instructions
--- OUTSIDE RECORDS SUMMARY | 2024-09-18 17:34 | XMS_ITS | Clinical Summary ---
Author Organization [facility] [facility] Address [address] [place] [id number] Care Team Providers Care Coding Educator Name Role Phone Loree Chamberlain Primary Care [...] 14 days. 28 Capsule 5 12:03 PM OUTBOUND SALES CONSULTANT 09/16/19 25 025 Active methocarbamoL 750 mg tabletIndications :Postoperative pain after spinal surgery Take 1 Tablet (750 mg) by mouth four times daily for 14 days. 56 Tablet 5 12:03 PM OUTBOUND SALES CONSULTANT 09/16/19 25 025 Active ondansetron (ZOFRAN ODT) 4 mg disintegrating tabletIndications :Post-op pain Place 1 Tablet (4 mg) on the tongue two times daily for 7 days. 14 Tablet 5 12:03 PM OUTBOUND SALES CONSULTANT 09/16/19 25 025 Active acetaminophen (TYLENOL EXTRA STRGTH) 500 mg tabletIndications :Postoperative pain after spinal surgery Take 2 Tablets (1,000 mg) by mouth every 8 hours for 14 days. Max acetaminophen dose: 4000mg in 24 hrs. 84 Tablet 5 12:03 PM OUTBOUND SALES CONSULTANT 09/16/19 25 025 Active oxyCODONE (ROXICODONE) 5 mg immediate release tabletIndications :Postoperative pain after spinal surgery Take 1 Tablet (5 mg) by mouth every 4 hours if needed for Pain. 35 Tablet 5 12:03 PM OUTBOUND SALES CONSULTANT 09/16/19 25 025 Active WalkerIndications :Postoperative pain [...] Department Care Team Description 09/18/2024 Nurse Triage [facility] [address] [place] [address] oLree Chamberlain PA Musculoskeletal Problem 09/17/2024 Patient Outreach [facility] [address] [place] [address] Jaquelin Graham, RN Primary RN Care Management; Hospital F/U (LACE 20) 09/14/2024 7:45 AM OUTBOUND SALES CONSULTANT Anesthesia Event [facility] [address] [place] [address] Murali Kiran MD Klein, Lindsay B, ELLIE 09/14/2024 7:15 AM OUTBOUND SALES CONSULTANT - 09/14/2024 12:45 PM OUTBOUND SALES CONSULTANT Surgery [facility] [address] [place] [address] Benigno Khan MD Decompression - Lateral recess and foraminal L4 to: L5, Posterior Spine Fusion with Instrumentation L4 to: L5 09/14/2024 5:08 AM OUTBOUND SALES CONSULTANT - 09/15/2024 1:20 PM OUTBOUND SALES CONSULTANT Hospital Encounter [facility] [address] [place] [address] Benigno Khan MD Postoperative pain after spinal surgery (Primary Dx); Post-op pain Discharge Disposition: Home Self Care 09/13/2024 Travel 08/27/2024 9:30 AM OUTBOUND SALES CONSULTANT Office Visit [facility] [address] [place] [address] Loree Chamberlain PA [facility] Med (Follow up - stable) 08/27/2024 9:10 AM OUTBOUND SALES CONSULTANT Office Visit [facility] [address] [place] [address] Loree Chamberlain PA Preoperative Exam (back); Occ Med 08/27/2024 Telephone [facility] [address] [place] [address] Loree Chamberlain PA Medication Management 08/27/2024 Travel 08/07/2024 Refill [facility] [address] [place] [address] Loree Chamberlain PA Refill Request (Cyclobenzaprine) 08/03/[address] [address] Loree Chamberlain PA Form 07/27/2024 10:50 AM OUTBOUND SALES CONSULTANT Office Visit [address] [address] Loree Chamberlain PA Occ Med (Follow up - went to dentist and got the all clear, is waiting to hear back from surgeon) 07/27/[address] [address] Loree Chamberlain PA Form (FORM ) 07/27/[address] [address] Loree Chamberlain PA Follow Up 07/27/2024 Travel 07/02/[address] [address] Loree Chamberlain PA Letter For Work (Return to work ) 06/26/2024 10:10 AM OUTBOUND SALES CONSULTANT Office Visit [address] [address] Loree Chamberlain PA Occ Med (Recheck- still having pain down R leg) 06/26/2024 Travel 06/21/2024 Refill [facility] [address] [place] [address] Loree Chamberlain PA Refill Request (Cyclobenzaprine) from [...] on file Legal Sex Male 6:17 AM OUTBOUND SALES CONSULTANT Gender Identity Not on file Sexual Orientation Not on file 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 on file Not on file Not on fi le Obstetrics History Last Filed Vital Signs Vital Sign Reading Time Taken Comments Blood Pressure 144/82 09/15/2024 12:15 PM OUTBOUND SALES CONSULTANT Pulse 89 09/15/2024 12:15 PM OUTBOUND SALES CONSULTANT Temperature 36.8 C (98.2 F) 09/15/2024 7:53 AM OUTBOUND SALES CONSULTANT Respiratory Rate 16 09/15/2024 12:15 PM OUTBOUND SALES CONSULTANT Oxygen Saturation 96% 09/15/2024 12:15 PM OUTBOUND SALES CONSULTANT Inhaled Oxygen Concentration - - Weight 69.4 kg (153 lb) 09/14/2024 6:29 AM OUTBOUND SALES CONSULTANT Height 167.6 cm (5' 6) 09/14/2024 6:29 AM OUTBOUND SALES CONSULTANT Body Mass Index 24.69 09/14/2024 6:29 AM OUTBOUND SALES CONSULTANT Plan of Treatment Upcoming Encounters Date Type Department Care Team (Late st Contact Info) Description 2024 7:50 AM OUTBOUND SALES CONSULTANT Office Visit [facility] [address] [place] [address] Rita Ramos PA [address] [place] [address] Health Maintenance Due Date Last Done Comments [...] 08/27/2024, 03/22/2012 Medical Devices Implanted Type Area Icer Machine Device Identifier Shelf Expiration Date Model / Serial / Lot Dino Lmbr 40x5.5mm Tsrh 3d Cvd Titnm - [id number] Implanted:Qty: 2 on 09/14/2024 by Benigno Khan MD at [facility] Spine Implants N/A: Spine Medtronic Spine/Ortho [id number] / / Putty Easypack 5cc Magnetos - [id number] Implanted:Qty: 1 on 09/14/2024 by Benigno Khan MD at [facility] N/A: Spine [employer] 04/17/2029 [id number] / / [id number] Set Screw Lmbr Tsrh 3dx - [id number] Implanted:Qty: 4 on 09/14/2024 by Benigno Khan MD at [facility] N/A: Spine Medtronic Spine/Ortho [id number] / / Screw Lmbr Post 6.5x40mm Tsrh 3dx Og Thin Va - [id number] Implanted:Qty: 4 on 09/14/2024 by Benigno Khan MD at [facility] N/A: Spine Medtronic Spine/Ortho [id number] / / Cnnctr Lmbr Sm Tsrh 3dx Offsettitnm - [id number] Implanted:Qty: 4 on 09/14/2024 by Benigno Khan MD at [facility] N/A: Spine Medtronic Spine/Ortho [id number] / / Procedures Procedure Name Priority Date/Time Associated Diagnosis Comments XR SPINE LUMBAR 2 VIEWS Routine 09/15/2024 9:51 AM OUTBOUND SALES CONSULTANT XR SPINE LUMBAR 2 VIEWS PORTABLE Routine 09/14/2024 11:18 AM OUTBOUND SALES CONSULTANT XR SPINE LUMBAR 2 VIEWS PORTABLE Routine 09/14/2024 11:17 AM OUTBOUND SALES CONSULTANT XR SPINE 1 VIEW PORTABLE Routine 09/14/2024 10:36 AM OUTBOUND SALES CONSULTANT XR SPINE 1 VIEW PORTABLE Routine 09/14/2024 8:39 AM OUTBOUND SALES CONSULTANT XR SPINE 1 VIEW PORTABLE Routine 09/14/2024 8:25 AM OUTBOUND SALES CONSULTANT ENDOTRACHEAL TUBE Routine 09/14/2024 8:1 4 AM OUTBOUND SALES CONSULTANT LAMINECTOMY DECOMPRESSION SPINE LEVEL 01 Tier 4 09/14/2024 7:11 AM OUTBOUND SALES CONSULTANT Stenosis, 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 HNP w/ Radiculopathy, Lumbar M51.16 Spondylolisthesis, Lumbar M43.16 Case Notes EDEN 4POST,[id number], SONALI/VERITO, as FUSION POSTERIOR SPINE LEVEL 01 Tier 4 09/14/2024 7:11 AM OUTBOUND SALES CONSULTANT Stenosis, 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 HNP w/ Radiculopathy, Lumbar M51.16 Spondylolisthesis, Lumbar M43.16 Case Notes CHRISTIANO GAYLE, SONALI/VERITO, as SCAN-OPERATIVE/PROCE DURE REPORT 09/14/2024 12:00 AM OUTBOUND SALES CONSULTANT SCAN-CARDIAC STRIP 09/14/2024 12 :00 AM OUTBOUND SALES CONSULTANT EKG 12 LEAD Routine 08/31/2024 4:12 PM OUTBOUND SALES CONSULTANT Preop general physical exam MO READING EKG - NO CHARGE, COMP ONLY Routine 08/31/2024 4:11 PM OUTBOUND SALES CONSULTANT Preop general physical exam BASIC METABOLIC PANEL Routine 08/27/2024 10:19 AM OUTBOUND SALES CONSULTANT Preop general physical exam CBC WITH AUTO DIFFERENTIAL Routine 08/27/2024 10:19 AM OUTBOUND SALES CONSULTANT Preop general physical exam LIPID PANEL W REFLEX MEASURED LDL Routine 08/04/2016 11:08 AM OUTBOUND SALES CONSULTANT Screening cholesterol level from Last 3 Months or Most Recently Relevant to Health Maintenance Results * XR SPINE LUMBAR 2 VIEWS (09/15/2024 9:51 AM OUTBOUND SALES CONSULTANT) Anatomical Region Laterality Modality LUMBAR SPINE Digital Radiogra phy 09/15/2024 10:2 8 AM OUTBOUND SALES CONSULTANT Impressions 09/15/2024 10:28 AM OUTBOUND SALES CONSULTANT 1. Status post posterior dino and pedicle screw fusion at L4-L5. Hardware intact. Alignment at that level maintained. Dictated by Remington Simpson MD @ Sep 15 2024 10:28AM (Electronically Signed) [email or web address] Narrative 09/15/2024 10:28 AM OUTBOUND SALES CONSULTANT For Patients: As a result of the [...] @ Sep 15 2024 10:28AM (Electronically Signed) [email or web address] [facility] Final Resu lt * XR SPINE LUMBAR 2 VIEWS PORTABLE (09/14/2024 11:18 AM OUTBOUND SALES CONSULTANT) Only the most recent of2 resultswithin the time period is included. Anatomical Region Laterality Modality Spine, LUMBAR SPINE Digital Radi ography Narrative 09/17/2024 1:34 PM OUTBOUND SALES CONSULTANT Indication: Spinal localization/intraoperative evaluation. Technique: Multiple radiographs [...] SPINE 1 VIEW PORTABLE (09/14/2024 10:36 AM OUTBOUND SALES CONSULTANT) Only the most recent of3 resultswithin the time period is included. Anatomical Region Laterality Modality Spine, CERVICAL SPINE, THORACIC SPINE, LUMBAR SP INE Digital Radiography Narrative 09/17/2024 1:34 PM OUTBOUND SALES CONSULTANT Indication: Spinal localization/intraoperative evaluation. Technique: Multiple radiographs [...] Final Result * ETT (09/14/2024 8:14 AM OUTBOUND SALES CONSULTANT) Narrative Roscoe Carpenter, ELLIE Student - 09/14/2024 8:14 AM OUTBOUND SALES CONSULTANT Roscoe Carpenter CRNA Student 09/14/2024 8:14 AM [...] Result * SCAN-CARDIAC STRIP (09/14/2024 12:00 AM OUTBOUND SALES CONSULTANT) Narrative 09/14/2024 12:00 AM OUTBOUND SALES CONSULTANT Ordered by an unspecified provider. Other Clinical Staff OTHER Final Resul t * SCAN-OPERATIVE/PROCEDURE REPORT (09/14/2024 12:00 AM OUTBOUND SALES CONSULTANT) Narrative 09/14/2024 12:00 AM OUTBOUND SALES CONSULTANT Ordered by an unspecified provider. Other Clinical Staff OTHER Final Resul t * EKG 12 LEAD (08/31/2024 4:12 PM OUTBOUND SALES CONSULTANT) us Loree [facility] EKG ORD Final R esult * MO READING EKG - NO CHARGE, COMP ONLY (08/31/2024 4:11 PM OUTBOUND SALES CONSULTANT) us Loree SALCEDO PB - PROVIDER READINGS Final Result * (ABNORMAL) CBC AND DIFFERENTIAL (08/27/2024 10:19 AM OUTBOUND SALES CONSULTANT) WHITE BLOOD CELL COUNT 9.2 3.8 - [...] BLOOD SPECIMEN / Unknown 08/27/2024 10:19 AM OUTBOUND SALES CONSULTANT 08/27/2024 10:19 AM OUTBOUND SALES CONSULTANT us Loree [facility] HEMATOLOG[facility] Final R esult [facility] [address] [place] [address], [facility] [address] [place] [address] * BASIC METABOLIC PANEL (08/27/2024 10:19 AM OUTBOUND SALES CONSULTANT) GLUCOSE 84 65 - 99 mg/dL [facility] [...] BLOOD SPECIMEN / Unknown 08/27/2024 10:19 AM OUTBOUND SALES CONSULTANT 08/27/2024 10:19 AM OUTBOUND SALES CONSULTANT Loree SALCEDO CHEMISTRY Final R esult [employer] [facility] [address] [place] [address], [facility] [address] * (ABNORMAL) LIPID PANEL W REFLEX MEASURED LDL (08/04/2016 11:08 AM OUTBOUND SALES CONSULTANT) CHOLESTEROL,TOTAL 169 100 - 199 mg/dL 08/04/2016 11:35 AM [facility] TRIGLYCERIDES 91 <150 mg/dL 08/04/2016 11:35 AM [facility] HDL CHOLESTEROL 40(L) >40 mg/dL 7 11:35 AM [facility] NON-HDL CHOLESTEROL 129 <145 mg/dl 08/04/2016 11:35 AM [facility] CHOL/HDL RATIO 4.23 <4.50 08/04/2016 11:35 AM [facility] LDL CHOLESTEROL 111 <=130 mg/dL 08/04/2016 11:35 AM [facility] PATIENT STATUS FASTING 08/04/2016 11:35 AM OUTBOUND SALES CONSULTANT [facility] Blood BLOOD SPECIMEN / Unknown Venipuncture / Unknown 08/04/2016 11:08 AM OUTBOUND SALES CONSULTANT 08/04/2016 11:08 AM OUTBOUND SALES CONSULTANT Loree [facility]CEDO CHEMISTRY Final R esult [facility] [address] [place] [address], from Last 3 Months or Most Recently Relevant to Health Maintenance Insurance [facility] Advance Directives * Full Code (Latest Code Status on File) Date Activated Date Inactivated Comments 09/14/2024 6:22 PM 09/15/2024 3:27 PM Question Answer Comments Code Status Discussion: Reviewed Preferences Care Teams Coding Educator Relationship Specialty Start Date End Date Loree Chamberlain [place] [address] [address] [place] [address] PCP - General Family Practice 05/02/14
[2024-09-18 17:50] VITALS: BP 148/87; PULSE 103; RESP 18; TEMP 36.6; O2SAT 99
== END 2024-09-18 18:05 | disposition home or self-care (01) ==
LOC: ED 17:31
PROVIDERS: Emergency Provider Family Medicine; PCP Physician Assistant Medical
DX: M25.571 Pain in right ankle and joints of right foot (principal)
CPT/HCPCS: 73610; 99283; 99284